=== PATIENT | female | born 1960 | race American Indian/Alaskan Native ===

== ENCOUNTER → 2016-05-23 | Outpatient (CLI) | payer BC | LOC: MW.CHFP 11:39 | PROVIDERS: ATTEND Emergency Medicine | DX: I10 Essential (primary) hypertension (principal); E78.00 Pure hypercholesterolemia, unspecified; E11.9 Type 2 diabetes mellitus without complications; Z79.4 Long term (current) use of insulin; D72.819 Decreased white blood cell count, unspecified | CPT/HCPCS: 36415; 80053; 80061; 82044; 83036; 85025 ==

== ENCOUNTER 2019-11-05 02:09 | Emergency (ER) | payer BC, OTHER ==
[2019-11-05] MEDS ORDERED: Sodium Chloride 0.9% 1,000 ML IV ONE (02:49)
[2019-11-05] MEDS ORDERED: Sodium Chloride 0.9% 2.5 ML Syringe FLUSH PRN (02:49)
[2019-11-05] MEDS ORDERED: Ketorolac 30 MG/ML SDV IVPUSH ONE (02:49)
[2019-11-05] MEDS ORDERED: Ondansetron 4 MG/2 ML SDV IVPUSH ONE (02:49)
[2019-11-05] MEDS ORDERED: Sodium Chloride 0.9% 10 ML Syringe FLUSH PRN (02:49)
--- NOTE | 2019-11-05 02:53 | EDM.PDOC ---
ED HPI GENERAL MEDICAL PROBLEM - General Chief Complaint: Fever Stated Complaint: FEVER, VOMITTING Time Seen by Provider: 11/05/19 02:42 Source of Information: Reports: Patient - History of Present Illness INITIAL COMMENTS - FREE TEXT/NARRATIVE: History of present illness: 59-year-old female presenting with right-sided low back pain for the last 2 weeks, has started to develop some left lower back pain and some right-sided abdominal pain in the last couple days. Also having increased urination and cloudy colored urine. Then this morning started having nausea and vomiting. Was able to drink some Sprite and keep it down just prior to arrival here. No fevers or chills. No dysuria. Review of systems: As per history of present illness and below otherwise all systems reviewed and negative. Past medical history: As per history of present illness and as reviewed below otherwise noncontributory. A. fib, fibromyalgia Surgical history: As per history of present illness and as reviewed below otherwise noncontributory. Cholecystectomy Social history: No reported history of drug or alcohol abuse. No tobacco Family history: As per history of present illness and as reviewed below otherwise noncontributory. Physical exam: GEN: no acute distress, well appearing HEENT: Atraumatic, normocephalic, mucous membranes moist, Neck: supple, nontender, trachea midline. Lungs: No respiratory distress. Heart: RRR Abdomen: Soft, mild diffuse tenderness, worst on the right side, nondistended. Back: Midline tenderness, mild bilateral flank tenderness Extremities: Atraumatic. Neurovascularly intact. Neuro: Awake, alert, oriented. Neuro Exam nonfocal. Skin: warm, dry, no lesions Diagnostics: Labs, UA, CT scan Therapeutics: Toradol, Zofran, IV fluids MDM: Impression: Plan: Definitive disposition and diagnosis as appropriate pending reevaluation and review of above. Right Lower Back Pain Score (Numeric/FACES): 7 - Related Data Allergies Allergy/AdvReac Type Severity Reaction Status Date / Time latex Allergy Hives Verified 11/05/19 03:54 Penicillins Allergy Hives Verified 11/05/19 03:21 promethazine Allergy Cannot Verified 11/05/19 02:45 Remember Home Meds: Home Meds Furosemide 1 tab PO DAILY 05/14/15 [History] Hydrocodone/Acetaminophen [Hydrocodon-Acetaminophn 10-325] 1 tab PO Q4H PRN 05/14/15 [History] Insulin Aspart [NovoLOG] 1 dose SUBCUT ASDIRECTED 05/14/15 [History] amLODIPine [Norvasc] 10 mg PO BEDTIME 05/14/15 [History] lisinopriL [Prinivil] 1 tab PO DAILY 05/14/15 [History] Apixaban [Eliquis] 0 mg PO DAILY 11/05/19 [History] Past Medical History HEENT History: Reports: Sinusitis Cardiovascular History: Reports: Heart Failure, Hypertension [employer]OL [employer] 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: Endocrine/Metabolic History: Reports: Diabetes, Type II - Past Surgical History Female Surgical History: Reports: Section, Hysterectomy Social & Family History - Family History Family Medical History: Noncontributory ED ROS GENERAL - Review of Systems Review Of Systems: See Below (See HPI) ED EXAM,LOWER BACK PAIN/INJURY - Physical Exam Exam: See Below (See HPI) Course - Vital Signs Last Recorded V/S: Last Vital Signs Temp 96.3 F L 11/05/19 02:42 Pulse 90 11/05/19 03:59 Resp 16 11/05/19 03:59 BP 134/82 11/05/19 03:59 Pulse Ox 98 11/05/19 03:59 - Orders/Labs/Meds Orders: Active Orders 24 hr Category Date Time Status Potassium Chloride Riders [KCL 40 MEQ in Water 100 ML] Med 11/05/19 03:15 Active 40 meq Premix Bag 1 bag IV ONETIME Sodium Chloride 0.9% [Saline Flush] Med 11/05/19 02:49 Active 10 ml FLUSH ASDIRECTED PRN Sodium Chloride 0.9% [Saline Flush] Med 11/05/19 02:49 Active 2.5 ml FLUSH ASDIRECTED PRN Saline Lock Insert [OM.PC] Stat Oth 11/05/19 02:49 Ordered Medication Orders Potassium Chloride 40 meq/ (Premix) 100 mls @ 25 mls/hr IV ONETIME ONE Stop: 11/05/19 07:14 Last Admin: 11/05/19 04:20 Dose: 25 mls/hr Documented by: PRO Sodium Chloride (Saline Flush) 10 ml FLUSH ASDIRECTED PRN PRN Reason: Keep Vein Open Sodium Chloride (Saline Flush) 2.5 ml FLUSH ASDIRECTED PRN PRN Reason: Keep Vein Open Labs: Laboratory Tests 11/05/19 11/05/19 11/05/19 Range/Units 02:30 02:30 02:30 WBC 3.04 L (4.0-11.0) K/uL RBC 4.20 L (4.30-5.90) M/uL Hgb 13.0 (12.0-16.0) g/dL Hct 38.8 (36.0-46.0) % MCV 92.4 (80.0-98.0) fL MCH 31.0 (27.0-32.0) pg MCHC 33.5 (31.0-37.0) g/dL RDW Std Deviation 52.3 (28.0-62.0) fl RDW Coeff of [place] 16 H (11.0-15.0) % Plt Count 73 L (150-400) K/uL MPV 10.40 (7.40-12.00) fL Neut % (Auto) 94.3 H (48.0-80.0) % Lymph % (Auto) 4.3 L (16.0-40.0) % [place] % (Auto) 0.7 (0.0-15.0) % Eos % (Auto) 0.7 (0.0-7.0) % Baso % (Auto) 0.0 (0.0-1.5) % Neut # (Auto) 2.9 (1.4-5.7) K/uL Lymph # (Auto) 0.1 L (0.6-2.4) K/uL [place] # (Auto) 0.0 (0.0-0.8) K/uL Eos # (Auto) 0.0 (0.0-0.7) K/uL Baso # (Auto) 0.0 (0.0-0.1) K/uL Nucleated RBC % 0.0 /100WBC Nucleated RBCs # 0 K/uL Sodium 134 L (136-145) mmol/L Potassium 2.7 L (3.5-5.1) mmol/L Chloride 95 L (98-107) mmol/L Carbon Dioxide 23.9 (21.0-32.0) mmol/L BUN 10 (7.0-18.0) mg/dL Creatinine 1.4 H (0.6-1.0) mg/dL Est Cr Clr Drug Dosing 44.18 mL/min Estimated GFR (MDRD) 38.6 ml/min Glucose 108 H (74-106) mg/dL Calcium 8.6 (8.5-10.1) mg/dL Total Bilirubin 2.1 H (0.2-1.0) mg/dL AST 168 H (15-37) IU/L ALT 40 (14-63) IU/L Alkaline Phosphatase 356 H (46-116) U/L Total Protein 7.3 (6.4-8.2) g/dL Albumin 3.7 (3.4-5.0) g/dL Globulin 3.6 (2.6-4.0) g/dL Albumin/Globulin Ratio 1.0 (0.9-1.6) Lipase 56 L (73-393) U/L Urine Color YELLOW Urine Appearance CLOUDY Urine pH 7.0 (5.0-8.0) Ur Specific [place] 1.015 (1.001-1.035) Urine Protein 100 H (NEGATIVE) mg/dL Urine Glucose (UA) NEGATIVE (NEGATIVE) mg/dL Urine Ketones NEGATIVE (NEGATIVE) mg/dL Urine Occult Blood LARGE H (NEGATIVE) Urine Nitrite POSITIVE H (NEGATIVE) Urine Bilirubin NEGATIVE (NEGATIVE) Urine Urobilinogen 2.0 H (<2.0) EU/dL Ur Leukocyte Esterase MODERATE H (NEGATIVE) Urine RBC 7-10 (0-2/HPF) Urine WBC TO NUMEROUS TO COUNT H (0-5/HPF) Ur Epithelial Cells FEW (NONE-FEW) Urine Bacteria 1+ H (NEGATIVE) Urine Mucus LIGHT (NONE-MOD) Urinalysis Comment Meds: Medications Generic Name Dose Route Start Last Admin Trade Name Freq PRN Reason Stop Dose Admin Potassium Chloride 40 meq/ 100 mls @ 25 mls/hr 11/05/19 03:15 11/05/19 04:20 Premix IV 11/05/19 07:14 25 mls/hr ONETIME ONE Administration Sodium Chloride 10 ml 11/05/19 02:49 Saline Flush FLUSH ASDIRECTED PRN Keep Vein Open Sodium Chloride 2.5 ml 11/05/19 02:49 Saline Flush FLUSH ASDIRECTED PRN Keep Vein Open Discontinued Medications Generic Name Dose Route Start Last Admin Trade Name Freq PRN Reason Stop Dose Admin Sodium Chloride 1,000 mls @ 999 mls/hr 11/05/19 02:49 11/05/19 03:08 Normal Saline IV 11/05/19 03:49 999 mls/hr .Bolus ONE Administration Ceftriaxone Sodium/Dextrose 1 50 mls @ 100 mls/hr 11/05/19 03:15 11/05/19 03:47 gm/ Premix IV 11/05/19 03:44 100 mls/hr ONETIME ONE Administration Ketorolac Tromethamine 30 mg 11/05/19 02:49 11/05/19 03:11 Toradol IVPUSH 11/05/19 02:50 30 mg ONETIME ONE Administration Morphine Sulfate 4 mg 11/05/19 04:19 11/05/19 04:22 Morphine IVPUSH 11/05/19 04:20 4 mg ONETIME ONE Administration Ondansetron HCl 4 mg 11/05/19 02:49 11/05/19 03:08 Zofran IVPUSH 11/05/19 02:50 4 mg ONETIME ONE Administration - Re-Assessments/Exams Free Text/Narrative Re-Assessment/Exam: 11/05/19 04:19 Patient reports that her pain is somewhat improved although still present. Additional pain medication will be ordered. 11/05/19 04:48 Assessed the patient. She is now feeling better. Pain is well controlled. I discussed all results with the patient including signs of UTI, hypokalemia, and abnormal findings on the CT scan of cirrhosis, splenomegaly and periaortic lymph node. An annotated copy of the CT scan results was also given to the patient. I discussed directly with the patient need to bring this up with her primary care physician and have them follow closely and determine if they need any additional work-up for the above likely chronic findings. She does report that she used to drink alcohol more heavily in the past but her generator rebuilder told her she could only drink 1 drink per day so she basically stopped drinking at that time. Departure - Departure Time of Disposition: 04:49 Disposition: Home, Self-Care 01 Clinical Impression: Hypokalemia, Splenomegaly UTI (urinary tract infection) Qualifiers: Urinary tract infection type: acute cystitis Hematuria presence: without hematuria Qualified Code(s): N30.00 - Acute cystitis without hematuria Cirrhosis Qualifiers: Hepatic cirrhosis type: unspecified hepatic cirrhosis Ascites presence: without ascites Qualified Code(s): K74.60 - Unspecified cirrhosis of liver - Discharge Information Instructions: Hypokalemia, Antibiotic Medicine, Adult, [id number], Enlarged Spleen, Cirrhosis, Urinary Tract Infection, Adult, [id number], Potassium Content of Foods, Pain Medicine Instructions, [id number] Referrals: Milagros Dean MD [Primary Care Provider] - 2 Days Forms: ED Department Discharge Additional Instructions: Please help with your primary care physician for further evaluation. Please take the antibiotics as prescribed. Please bring the CT scan results which were given to you with you to your primary care physician follow-up to discuss with them the cirrhosis and splenomegaly found on CT scan today, as well as the lymph node near the aorta. These need to be closely monitored and may need additional testing. The following information is given to patients seen in the emergency department who are being discharged to home. This information is to outline your options for follow-up care. We provide all patients seen in our emergency department with a follow-up referral. The need for follow-up, as well as the timing and circumstances, are variable depending upon the specifics of your emergency department visit. If you don't have a primary care physician on staff, we will provide you with a referral. We always advise you to contact your personal physician following an emergency department visit to inform them of the circumstance of the visit and for follow-up with them and/or the need for any referrals to a consulting specialist. The emergency department will also refer you to a specialist when appropriate. This referral assures that you have the opportunity for follow-up care with a specialist. All of these measure are taken in an effort to provide you with optimal care, which includes your follow-up. Under all circumstances we always encourage you to contact your private physician who remains a resource for coordinating your care. When calling for follow-up care, please make the office aware that this follow-up is from your recent emergency room visit. If for any reason you are refused follow-up, please contact the [facility] Emergency Department at and asked to speak to the emergency department charge nurse. [facility] [address] [place] [id number] [facility] [address] [place] [address] Sepsis Event Note (ED) - Evaluation Sepsis Screening Result: No Definite Risk - Focused Exam Vital Signs: Vital Signs Temp Pulse Resp BP Pulse Ox 11/05/19 03:59 90 16 134/82 98 11/05/19 02:42 96.3 F L 121 H 19 147/76 H 94 L - My Orders Last 24 Hours: My Active Orders 11/05/19 02:49 Sodium Chloride 0.9% [Saline Flush] 10 ml FLUSH ASDIRECTED PRN Sodium Chloride 0.9% [Saline Flush] 2.5 ml FLUSH ASDIRECTED PRN Saline Lock Insert [OM.PC] Stat 11/05/19 03:15 Potassium Chloride Riders [KCL 40 MEQ in Water 100 ML] 40 meq Premix Bag 1 bag IV ONETIME - Assessment/Plan Last 24 Hours: My Active Orders 11/05/19 02:49 Sodium Chloride 0.9% [Saline Flush] 10 ml FLUSH ASDIRECTED PRN Sodium Chloride 0.9% [Saline Flush] 2.5 ml FLUSH ASDIRECTED PRN Saline Lock Insert [OM.PC] Stat 11/05/19 03:15 Potassium Chloride Riders [KCL 40 MEQ in Water 100 ML] 40 meq Premix Bag 1 bag IV ONETIME
[2019-11-05 03:05] LABS: CARBON DIOXIDE,CO2 23.9 mmol/L (21.0-32.0); POTASSIUM,K 2.7 mmol/L (3.5-5.1)
[2019-11-05] MEDS ORDERED: Potassium Chloride Riders 40 MEQ in Premix Bag 1 BAG IV ONE (03:15)
[2019-11-05] MEDS ORDERED: cefTRIAXone 1 GM in Premix Bag 1 BAG IV ONE (03:15)
[2019-11-05] MEDS ORDERED: Morphine 4 MG/ML Syringe IVPUSH ONE (04:19)
--- NOTE | 2019-11-05 04:37 | CT ---
Clinical INDICATION: Right flank pain. TECHNIQUE: Axial noncontrast CT cuts were performed from above the diaphragm to the below the ischial tuberosities. FINDINGS: There are no renal, ureteral or bladder calculi. There are several pelvic phleboliths bilaterally. There is no hydronephrosis. The urinary bladder appears normal. There has been a hysterectomy. The liver contour is lobulated consistent with cirrhosis. There is severe splenomegaly with the spleen measuring 14.2 cm AP, 6.7 cm transversely and 18.5 cm cranial caudally. There has been a cholecystectomy. There is a small hiatal hernia. The pancreas and adrenal glands appear normal. There are mildly prominent left periaortic lymph nodes measuring up to 1.7 cm in maximum diameter. There is a small amount of free fluid in the pelvis. There is no iliac or inguinal lymphadenopathy. There are no nodules or masses at lung bases. There is atherosclerotic calcification of the coronary arteries IMPRESSION: 1. Negative for urinary tract calculi. 2. Cirrhotic liver morphology. 3. Severe splenomegaly. 4. Mildly prominent periaortic lymph nodes. 5. Small volume free fluid in the pelvis. 6. Status post cholecystectomy and hysterectomy. 7. Small hiatal hernia. 8. Coronary arterial calcification. Please note that all CT scans at this facility use dose modulation, iterative reconstruction, and/or weight-based dosing when appropriate to reduce radiation dose to as low as reasonably achievable. Dictated by Ricardo Joy MD @ Nov 05 2019 4:23AM Signed by Dr. Ricardo Joy @ Nov 05 2019 4:35AM
[2019-11-05 05:08] VITALS: BP 139/65; PULSE 105
== END 2019-11-05 05:05 | disposition home or self-care (01) ==
LOC: MW.ED 02:09
DX: N30.00 Acute cystitis without hematuria (principal); E87.6 Hypokalemia; K74.60 Unspecified cirrhosis of liver; R16.1 Splenomegaly, not elsewhere classified; I11.0 Hypertensive heart disease with heart failure; I50.9 Heart failure, unspecified; E11.9 Type 2 diabetes mellitus without complications; Z88.0 Allergy status to penicillin; Z91.040 Latex allergy status; Z88.8 Allergy status to other drugs, medicaments and biological substances; Z79.899 Other long term (current) drug therapy; Z79.01 Long term (current) use of anticoagulants
CPT/HCPCS: 36415; 74176; 80053; 81001; 83690; 85025; 96361; 96365; 96367; 96375; 99284; J0696; J1885; J2270; J2405; J3480; J7030

== ENCOUNTER 2019-11-05 12:40 | Inpatient (IN) | payer OTHER ==
[2019-11-05] MEDS ORDERED: Sodium Chloride 0.9% 10 ML Syringe FLUSH PRN (13:06)
[2019-11-05] MEDS ORDERED: Ondansetron 4 MG/2 ML SDV IVPUSH ONE (13:06)
[2019-11-05] MEDS ORDERED: Sodium Chloride 0.9% 1,000 ML IV ONE ×2 (13:06→14:37)
[2019-11-05] MEDS ORDERED: Sodium Chloride 0.9% 2.5 ML Syringe FLUSH PRN (13:06)
--- NOTE | 2019-11-05 13:07 | EDM.PDOC ---
ED HPI GENERAL MEDICAL PROBLEM - General Chief Complaint: Flank Pain Stated Complaint: FLANK PAIN, NAUSEA, VOMITTING Time Seen by Provider: 11/05/19 13:01 Source of Information: Reports: Patient History Limitations: Reports: No Limitations - History of Present Illness INITIAL COMMENTS - FREE TEXT/NARRATIVE: HISTORY AND PHYSICAL: History of present illness: Patient is a 59-year-old female who presents to the emergency room for the second time today with complaints of LUQ abdominal pain, bilateral flank pain, nausea and vomiting. Upon patient's first visit early this morning she was diagnosed with a urinary tract infection, hypokalemia, cirrhosis and have been given IV antibiotics (1gm Rocephin) and 40meQ IV potassium. Patient's initial ER visit was for low back pain, urinary symptoms x2 weeks. She states since being discharged she has had a T-max of 104, increased pain and unable to keep anything down by mouth. Patient denies any headache, change in vision, syncope or near syncope. Denies any chest pain, back pain, shortness of breath or cough. Denies any diarrhea, constipation or dysuria. Has not noted any blood in urine or stool. On patient's earlier ER visit her CT showed splenomegaly, lymph node near her aorta, and cirrhosis. Patient states in 2014 she was informed by a provider in [place] that she had liver disease, although has never had any complications or problem with this since. Approximately a year ago she did stop drinking alcohol as her equip tech told her she should due to the liver disease. She also has a history of type 2 diabetes, hypertension and heart failure. Review of systems: As per history of present illness and below otherwise all systems reviewed and negative. Past medical history: As per history of present illness and as reviewed below otherwise noncontributory. Surgical history: As per history of present illness and as reviewed below otherwise noncontributory. Social history: See social history for further information Family history: As per history of present illness and as reviewed below otherwise noncontributory. Physical exam: General: Well developed and well nourished. Alert and orientated x 3. Nontoxic in appearance and in no acute distress. Vital signs are stable and have been reviewed by me. Nursing notes were reviewed. HEENT: Atraumatic, normocephalic, pupils equal and reactive bilaterally, negative for conjunctival pallor or scleral icterus, mucous membranes moist, TMs normal bilaterally, throat clear, neck supple, nontender, trachea midline. No drooling or trismus noted. No meningeal signs. No hot potato voice noted. Lungs: Clear to auscultation, breath sounds equal bilaterally, chest nontender. Normal work of breathing, no accessory muscles used. Heart: S1S2, regular rate and rhythm without overt murmur Abdomen: Soft, nondistended, LUQ tenderness. Negative for masses or hepatosplenomegaly. Bilateral costovertebral tenderness. Skin: Intact, warm, dry. No lesions or rashes noted. Hematologic: No petechiae or purpra. Mucosa appropriate color and normal nail bed color and refill. Extremities: Atraumatic, moves all extremities per self without difficulty or deficits, negative for cords or calf pain. Neurovascular unremarkable. Neuro: Awake, alert, oriented. Cranial nerves II through XII unremarkable. Cerebellum unremarkable. Motor and sensory unremarkable throughout. Exam nonfocal. Psychiatric: Mood and affect are appropriate. Normal thought process. Answering questions appropriately. Notes: Patient's earlier ER visit: Lipase 56 (L), Potassium 2.7 (L). CT negative for urinary tract calculi. No hydronephrosis. Cirrhotic liver morphology. Severe splenomegaly with the spleen measuring 14.2 cm x 6.7 cm x 18.5. Cholecystectomy and hysterectomy. Mildly prominent periaortic lymph nodes. Small volume free fluid in the pelvis. Patient has positive nitrates with too many to count WBCs. Patient's lactate is elevated. Fluids are running and blood cultures have been drawn. Potassium is now 3.0, up from earlier draw. I did talk with , hospitalist on-call, who is aware of this patient's second visit. As the patient had previously had both potassium and Rocephin I will hold any additional antibiotic or potassium orders, Avinash states he will order these later in the evening. Patient is aware of admission and agreeable stating "I cannot go home like this". Diagnostics: CBC, CMP, lactate, blood culture x2, COVID Therapeutics: IV fluids Impression: UTI Splenomegaly Plan: Inpatient admission to Med/Surg Definitive disposition and diagnosis as appropriate pending reevaluation and review of above. Left Abdomen Pain Score (Numeric/FACES): 8 - Related Data Allergies Allergy/AdvReac Type Severity Reaction Status Date / Time latex Allergy Hives Verified 11/05/19 13:06 Penicillins Allergy Hives Verified 11/05/19 13:06 promethazine Allergy Cannot Verified 11/05/19 13:06 Remember Home Meds: Home Meds Furosemide 1 tab PO DAILY 05/14/15 [History] Hydrocodone/Acetaminophen [Hydrocodon-Acetaminophn 10-325] 1 tab PO Q4H PRN 05/14/15 [History] Insulin Aspart [NovoLOG] 1 dose SUBCUT ASDIRECTED 05/14/15 [History] amLODIPine [Norvasc] 10 mg PO BEDTIME 05/14/15 [History] lisinopriL [Prinivil] 1 tab PO DAILY 05/14/15 [History] Apixaban [Eliquis] 0 mg PO DAILY 11/05/19 [History] Potassium Chloride 20 meq PO DAILY #20 tablet.er 11/05/19 [Rx] cephALEXin [Keflex] 1,000 mg PO BID #40 cap 11/05/19 [Rx] Past Medical History HEENT History: Reports: Sinusitis Cardiovascular History: Reports: Heart Failure, 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 ED EXAM, RENAL/ - Physical Exam Exam: See Below (See dictation) Course - Vital Signs Last Recorded V/S: Last Vital Signs Temp 96.3 F L 11/05/19 13:02 Pulse 117 H 11/05/19 13:02 Resp 18 11/05/19 13:02 BP 106/76 11/05/19 13:02 Pulse Ox 92 L 11/05/19 13:02 - Orders/Labs/Meds Orders: Active Orders 24 hr Category Date Time Status CULTURE BLOOD [BC] Stat Lab 11/05/19 13:15 Received CULTURE BLOOD [BC] Stat Lab 11/05/19 13:25 Received Sodium Chloride 0.9% [Saline Flush] Med 11/05/19 13:06 Active 10 ml FLUSH ASDIRECTED PRN Sodium Chloride 0.9% [Saline Flush] Med 11/05/19 13:06 Active 2.5 ml FLUSH ASDIRECTED PRN Blood Culture x2 Reflex Set [OM.PC] Stat Ot 11/05/19 13:05 Ordered Saline Lock Insert [OM.PC] Stat Ot 11/05/19 13:06 Ordered Medication Orders Sodium Chloride (Normal Saline) 1,000 mls @ 999 mls/hr IV .Bolus ONE Stop: 11/05/19 15:37 Sodium Chloride (Normal Saline) 1,000 mls @ 125 mls/hr IV ASDIRECTED JANIE Ceftriaxone Sodium/Dextrose 1 (gm/ Premix) 50 mls @ 100 mls/hr IV Q24H JANIE Sodium Chloride (Saline Flush) 10 ml FLUSH ASDIRECTED PRN PRN Reason: Keep Vein Open Sodium Chloride (Saline Flush) 2.5 ml FLUSH ASDIRECTED PRN PRN Reason: Keep Vein Open Labs: Laboratory Tests 11/05/19 11/05/19 11/05/19 Range/Units 13:15 13:15 13:15 WBC 6.86 (4.0-11.0) K/uL RBC 4.00 L (4.30-5.90) M/uL Hgb 12.5 (12.0-16.0) g/dL Hct 36.9 (36.0-46.0) % MCV 92.3 (80.0-98.0) fL MCH 31.3 (27.0-32.0) pg MCHC 33.9 (31.0-37.0) g/dL RDW Std Deviation 52.4 (28.0-62.0) fl RDW Coeff of Saranya 16 H (11.0-15.0) % Plt Count 50 L (150-400) K/uL MPV 10.00 (7.40-12.00) fL Neut % (Auto) 94.0 H (48.0-80.0) % Lymph % (Auto) 2.9 L (16.0-40.0) % [place] % (Auto) 3.1 (0.0-15.0) % Eos % (Auto) 0.0 (0.0-7.0) % Baso % (Auto) 0.0 (0.0-1.5) % Neut # (Auto) 6.5 H (1.4-5.7) K/uL Lymph # (Auto) 0.2 L (0.6-2.4) K/uL [place] # (Auto) 0.2 (0.0-0.8) K/uL Eos # (Auto) 0.0 (0.0-0.7) K/uL Baso # (Auto) 0.0 (0.0-0.1) K/uL Nucleated RBC % 0.0 /100WBC Nucleated RBCs # 0 K/uL Lactate 3.7 H* (0.20-2.00) mmol/L Sodium 136 (136-145) mmol/L Potassium 3.0 L (3.5-5.1) mmol/L Chloride 97 L (98-107) mmol/L Carbon Dioxide 25.6 (21.0-32.0) mmol/L BUN 12 (7.0-18.0) mg/dL Creatinine 1.4 H (0.6-1.0) mg/dL Est Cr Clr Drug Dosing 44.18 mL/min Estimated GFR (MDRD) 38.6 ml/min Glucose 149 H (74-106) mg/dL Calcium 9.1 (8.5-10.1) mg/dL Total Bilirubin 2.1 H (0.2-1.0) mg/dL AST 86 H (15-37) IU/L ALT 39 (14-63) IU/L Alkaline Phosphatase 267 H (46-116) U/L Total Protein 6.9 (6.4-8.2) g/dL Albumin 3.3 L (3.4-5.0) g/dL Globulin 3.6 (2.6-4.0) g/dL Albumin/Globulin Ratio 0.9 (0.9-1.6) Meds: Medications Generic Name Dose Route Start Last Admin Trade Name Freq PRN Reason Stop Dose Admin Sodium Chloride 1,000 mls @ 999 mls/hr 11/05/19 14:37 Normal Saline IV 11/05/19 15:37 .Bolus ONE Sodium Chloride 1,000 mls @ 125 mls/hr 11/05/19 14:45 Normal Saline IV ASDIRECTED JANIE Ceftriaxone Sodium/Dextrose 1 50 mls @ 100 mls/hr 11/05/19 14:52 gm/ Premix IV Q24H JANIE Sodium Chloride 10 ml 11/05/19 13:06 Saline Flush FLUSH ASDIRECTED PRN Keep Vein Open Sodium Chloride 2.5 ml 11/05/19 13:06 Saline Flush FLUSH ASDIRECTED PRN Keep Vein Open Discontinued Medications Generic Name Dose Route Start Last Admin Trade Name Freq PRN Reason Stop Dose Admin Sodium Chloride 1,000 mls @ 999 mls/hr 11/05/19 13:06 11/05/19 13:25 Normal Saline IV 11/05/19 14:06 999 mls/hr STAT ONE Administration Ceftriaxone Sodium 1 gm/ 50 mls @ 100 mls/hr 11/05/19 14:45 Sodium Chloride IV Q24H JANIE Ceftriaxone Sodium/Dextrose 2 50 mls @ 100 mls/hr 11/05/19 15:00 gm/ Premix IV 11/05/19 15:29 ONETIME ONE Ceftriaxone Sodium/Dextrose 1 50 mls @ 100 mls/hr 11/06/19 14:45 gm/ Premix IV Q24H JANIE Ceftriaxone Sodium/Dextrose Confirm 11/05/19 14:57 Rocephin In Dextrose,Iso-Osm 2 Gm/50 Ml Administered 11/05/19 14:58 Dose 50 mls @ as directed .ROUTE .STK-MED ONE Ondansetron HCl 4 mg 11/05/19 13:06 11/05/19 13:22 Zofran IVPUSH 11/05/19 13:07 4 mg ONETIME ONE Administration Potassium Chloride 40 meq 11/05/19 14:34 11/05/19 15:00 Klor-Con M20 PO 11/05/19 14:35 40 meq ONETIME ONE Administration Departure - Departure Time of Disposition: 13:56 Disposition: Admitted As Inpatient 67 Clinical Impression: UTI, Urinary tract infectious disease, Splenomegaly - Discharge Information Sepsis Event Note (ED) - Evaluation Sepsis Screening Result: No Definite Risk - Focused Exam Vital Signs: Vital Signs Temp Pulse Resp BP Pulse Ox 11/05/19 13:02 96.3 F L 117 H 18 106/76 92 L - My Orders Last 24 Hours: My Active Orders 11/05/19 13:05 Blood Culture x2 Reflex Set [OM.PC] Stat 11/05/19 13:06 Sodium Chloride 0.9% [Saline Flush] 10 ml FLUSH ASDIRECTED PRN Sodium Chloride 0.9% [Saline Flush] 2.5 ml FLUSH ASDIRECTED PRN Saline Lock Insert [OM.PC] Stat 11/05/19 13:15 CULTURE BLOOD [BC] Stat 11/05/19 13:25 CULTURE BLOOD [BC] Stat - Assessment/Plan Last 24 Hours: My Active Orders 11/05/19 13:05 Blood Culture x2 Reflex Set [OM.PC] Stat 11/05/19 13:06 Sodium Chloride 0.9% [Saline Flush] 10 ml FLUSH ASDIRECTED PRN Sodium Chloride 0.9% [Saline Flush] 2.5 ml FLUSH ASDIRECTED PRN Saline Lock Insert [OM.PC] Stat 11/05/19 13:15 CULTURE BLOOD [BC] Stat 11/05/19 13:25 CULTURE BLOOD [BC] Stat
[2019-11-05 13:47] LABS: CARBON DIOXIDE,CO2 25.6 mmol/L (21.0-32.0)
[2019-11-05] MEDS ORDERED: Potassium Chloride 20 MEQ Tab.ER PO ONE (14:34)
[2019-11-05] MEDS ORDERED: Sodium Chloride 0.9% 1,000 ML IV SCH (14:45)
[2019-11-05] MEDS ORDERED: cefTRIAXone 1 GM in Sodium Chloride 0.9% 50 ML IV SCH (14:45)
[2019-11-05] MEDS ORDERED: cefTRIAXone 2 GM in Premix Bag 1 BAG IV ONE (15:00)
[2019-11-05] MEDS ORDERED: Morphine 4 MG/ML Syringe IVPUSH ONE (15:09)
[2019-11-05] MEDS: cefTRIAXone 1 GM in Premix Bag 1 BAG IV SCH (15:09)
--- NOTE | 2019-11-05 15:24 | PCM.HP.2 ---
H&P History of Present Illness - General Date of Service: 11/05/19 Admit Problem/Dx: Admission Diagnosis/Problem Admission Diagnosis/Problem UTI, Urinary tract infectious disease - History of Present Illness Initial Comments - Free Text/Narative: 59 year old female admitted for urosepsis and LIVE. Patient states that she was seen in the ED this morning around 2am for flank pain, back pain, LUQ pain, cloudy urine fever and nausea. Patient states that she has been having cloudy urine and back pain for 2 weeks. She was treated in the ED with IV Rocephin, given a prescription for antibiotics and discharged. Patient re visited the ED later this afternoon for increasing pain and a temperature of 104F. On admission to the medical floor, patient was given 1g Rocephin, 1LNS Bolus, pain medication, 125ml/hr NS. Patient has a PMH for HTN, A-Fib treated with Eliquis, Diabetes, Liver Cirrhosis. Left Abdomen Pain Score (Numeric/FACES): 8 - Related Data Allergies/Adverse Reactions: Allergies Allergy/AdvReac Type Severity Reaction Status Date / Time codeine Allergy Other Verified 11/05/19 15:49 latex Allergy Hives Verified 11/05/19 15:48 Penicillins Allergy Hives Verified 11/05/19 15:48 promethazine Allergy Cannot Verified 11/05/19 15:48 Remember Home Medications: Home Meds Furosemide 1 tab PO DAILY 05/14/15 [History] Hydrocodone/Acetaminophen [Hydrocodon-Acetaminophn 10-325] 1 tab PO Q4H PRN 05/14/15 [History] Insulin Aspart [NovoLOG] 1 dose SUBCUT TIDAC 05/14/15 [History] amLODIPine [Norvasc] 10 mg PO BEDTIME 05/14/15 [History] lisinopriL [Prinivil] 1 tab PO DAILY 05/14/15 [History] Apixaban [Eliquis] 5 mg PO BID 11/05/19 [History] Diltiazem [Dilacor XR] 1 cap PO BEDTIME 11/05/19 [History] Potassium Chloride 20 meq PO DAILY #20 tablet.er 11/05/19 [Rx] Past Medical History HEENT History: Reports: Sinusitis Cardiovascular History: Reports: 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 Failure, 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 Denies: Chills Pulmonary: Denies: Shortness of Breath, Wheezing, Pleuritic Chest Pain, Cough Cardiovascular: Reports: Dyspnea on Exertion. Denies: Chest Pain, Palpitations Gastrointestinal: Reports: Abdominal Pain, Decreased Appetite, Nausea, Vomiting. Denies: Diarrhea Genitourinary: Reports: Flank Pain. Denies: Urgency, Hematuria, Retention Musculoskeletal: Reports: Back Pain Psychiatric: Denies: Confusion Neurological: Denies: Dizziness, Headache Exam - Exam Exam: See Below - Vital Signs Vital Signs: Last Vital Signs Temp 98.3 F 11/05/19 15:15 Pulse 101 H 11/05/19 15:15 Resp 20 11/05/19 15:15 BP 147/68 H 11/05/19 15:15 Pulse Ox 93 L 11/05/19 15:15 Weight: 215 lb - Exam General: Alert, Oriented HEENT: Hearing Intact, Mucosa Moist & [place] Lungs: Clear to Auscultation, Normal Respiratory Effort. No: Wheezing Cardiovascular: Regular Rate, Regular Rhythm GI/Abdominal Exam: Soft, No Distention, Tender (throughout abdomen) Back Exam: CVA Tenderness (L), CVA Tenderness (R) - Patient Data Lab Results Last 24 hrs: Laboratory Results - last 24 hr 11/05/19 11/05/19 11/05/19 Range/Units 13:15 13:15 13:15 WBC 6.86 (4.0-11.0) K/uL RBC 4.00 L (4.30-5.90) M/uL Hgb 12.5 (12.0-16.0) g/dL Hct 36.9 (36.0-46.0) % MCV 92.3 (80.0-98.0) fL MCH 31.3 (27.0-32.0) pg MCHC 33.9 (31.0-37.0) g/dL RDW Std Deviation 52.4 (28.0-62.0) fl RDW Coeff of Saranya 16 H (11.0-15.0) % Plt Count 50 L (150-400) K/uL MPV 10.00 (7.40-12.00) fL Neut % (Auto) 94.0 H (48.0-80.0) % Lymph % (Auto) 2.9 L (16.0-40.0) % [place] % (Auto) 3.1 (0.0-15.0) % Eos % (Auto) 0.0 (0.0-7.0) % Baso % (Auto) 0.0 (0.0-1.5) % Neut # (Auto) 6.5 H (1.4-5.7) K/uL Lymph # (Auto) 0.2 L (0.6-2.4) K/uL [place] # (Auto) 0.2 (0.0-0.8) K/uL Eos # (Auto) 0.0 (0.0-0.7) K/uL Baso # (Auto) 0.0 (0.0-0.1) K/uL Nucleated RBC % 0.0 /100WBC Nucleated RBCs # 0 K/uL Lactate 3.7 H* (0.20-2.00) mmol/L Sodium 136 (136-145) mmol/L Potassium 3.0 L (3.5-5.1) mmol/L Chloride 97 L (98-107) mmol/L Carbon Dioxide 25.6 (21.0-32.0) mmol/L BUN 12 (7.0-18.0) mg/dL Creatinine 1.4 H (0.6-1.0) mg/dL Est Cr Clr Drug Dosing 44.18 mL/min Estimated GFR (MDRD) 38.6 ml/min Glucose 149 H (74-106) mg/dL Calcium 9.1 (8.5-10.1) mg/dL Total Bilirubin 2.1 H (0.2-1.0) mg/dL AST 86 H (15-37) IU/L ALT 39 (14-63) IU/L Alkaline Phosphatase 267 H (46-116) U/L Total Protein 6.9 (6.4-8.2) g/dL Albumin 3.3 L (3.4-5.0) g/dL Globulin 3.6 (2.6-4.0) g/dL Albumin/Globulin Ratio 0.9 (0.9-1.6) SARS-CoV-2 RNA (ROGELIO) (NEGATIVE) 11/05/19 Range/Units 13:59 WBC (4.0-11.0) K/uL RBC (4.30-5.90) M/uL Hgb (12.0-16.0) g/dL Hct (36.0-46.0) % MCV (80.0-98.0) fL MCH (27.0-32.0) pg MCHC (31.0-37.0) g/dL RDW Std Deviation (28.0-62.0) fl RDW Coeff of Saranya (11.0-15.0) % Plt Count (150-400) K/uL MPV (7.40-12.00) fL Neut % (Auto) (48.0-80.0) % Lymph % (Auto) (16.0-40.0) % [place] % (Auto) (0.0-15.0) % Eos % (Auto) (0.0-7.0) % Baso % (Auto) (0.0-1.5) % Neut # (Auto) (1.4-5.7) K/uL Lymph # (Auto) (0.6-2.4) K/uL [place] # (Auto) (0.0-0.8) K/uL Eos # (Auto) (0.0-0.7) K/uL Baso # (Auto) (0.0-0.1) K/uL Nucleated RBC % /100WBC Nucleated RBCs # K/uL Lactate (0.20-2.00) mmol/L Sodium (136-145) mmol/L Potassium (3.5-5.1) mmol/L Chloride (98-107) mmol/L Carbon Dioxide (21.0-32.0) mmol/L BUN (7.0-18.0) mg/dL Creatinine (0.6-1.0) mg/dL Est Cr Clr Drug Dosing mL/min Estimated GFR (MDRD) ml/min Glucose (74-106) mg/dL Calcium (8.5-10.1) mg/dL Total Bilirubin (0.2-1.0) mg/dL AST (15-37) IU/L ALT (14-63) IU/L Alkaline Phosphatase (46-116) U/L Total Protein (6.4-8.2) g/dL Albumin (3.4-5.0) g/dL Globulin (2.6-4.0) g/dL Albumin/Globulin Ratio (0.9-1.6) SARS-CoV-2 RNA (ROGELIO) NEGATIVE (NEGATIVE) Result Diagrams: 11/05/19 13:15 11/05/19 13:15 Sepsis Event Note - Evaluation Sepsis Screening Result: No Definite Risk - Focused Exam Vital Signs: Vital Signs Temp Pulse Resp BP Pulse Ox 11/05/19 15:15 98.3 F 101 H 20 147/68 H 93 L 11/05/19 13:02 96.3 F L 117 H 18 106/76 92 L Problem List Initiated/Reviewed/Updated: Yes Orders Last 24hrs: Active Orders 24 hr Category Date Time Status Admission Status [Patient Status] [ADT] Stat ADT 11/05/19 13:42 Active BASIC METABOLIC PANEL,BMP [CHEM] AM Lab 11/06/19 05:11 Ordered CBC WITH AUTO DIFF [HEME] AM Lab 11/06/19 05:11 Ordered CULTURE BLOOD [BC] Stat Lab 11/05/19 13:15 Received CULTURE BLOOD [BC] Stat Lab 11/05/19 13:25 Received CULTURE URINE [RM] Routine Lab 11/05/19 02:30 Received Sodium Chloride 0.9% [Normal Saline] 1,000 ml Med 11/05/19 14:37 Active IV .Bolus Sodium Chloride 0.9% [Normal Saline] 1,000 ml Med 11/05/19 14:45 Active IV ASDIRECTED Sodium Chloride 0.9% [Saline Flush] Med 11/05/19 13:06 Active 10 ml FLUSH ASDIRECTED PRN Sodium Chloride 0.9% [Saline Flush] Med 11/05/19 13:06 Active 2.5 ml FLUSH ASDIRECTED PRN cefTRIAXone [Rocephin in Dextrose,Iso-Osm 1 GM/50 ML] 1 Med 11/05/19 14:52 Active gm Premix Bag 1 bag IV Q24H Blood Culture x2 Reflex Set [OM.PC] Stat Oth 11/05/19 13:05 Ordered Saline Lock Insert [OM.PC] Stat Oth 11/05/19 13:06 Ordered Medication Orders Sodium Chloride (Normal Saline) 1,000 mls @ 999 mls/hr IV .Bolus ONE Stop: 11/05/19 15:37 Last Admin: 11/05/19 15:08 Dose: 999 mls/hr Documented by: [email or web address] Sodium Chloride (Normal Saline) 1,000 mls @ 125 mls/hr IV ASDIRECTED JANIE Stop: 11/05/19 22:44 Ceftriaxone Sodium/Dextrose 1 (gm/ Premix) 50 mls @ 100 mls/hr IV Q24H JANIE Last Admin: 11/05/19 15:09 Dose: 100 mls/hr Documented by: KAYDENAM Sodium Chloride (Saline Flush) 10 ml FLUSH ASDIRECTED PRN PRN Reason: Keep Vein Open Sodium Chloride (Saline Flush) 2.5 ml FLUSH ASDIRECTED PRN PRN Reason: Keep Vein Open Assessment/Plan Comment:: Assessment/Plan: Urosepsis- 1g Rocephin Q24, 1L NS BOLUS, 125 ml/hr NS, UC, Repeat Lactate, Zofran 4MG Q4HR PRN, Morphine 4MG Q3HR PRN A-Fib- Eliquis, Diltiazem Hypokalemia- 40meq K+ PO. Recheck AM BMP LIVE- 125ml/hr NS. Monitor AM BMP.
[2019-11-05] MEDS ORDERED: Ondansetron 4 MG/2 ML SDV IVPUSH PRN (16:42)
[2019-11-05] MEDS ORDERED: Morphine 4 MG/ML Syringe IVPUSH PRN (18:22)
[2019-11-05] MEDS: Insulin Aspart 100 Units/ML 3 ML Pen SUBCUT SCH (18:47)
[2019-11-05] MEDS: amLODIPine 5 MG Tab PO SCH (20:51)
[2019-11-05] MEDS: Diltiazem 180 MG Cap.CD PO SCH (20:52)
[2019-11-05] MEDS: Acetaminophen/HYDROcodone 325-10 MG Tab PO PRN (20:52)
[2019-11-05] MEDS: Morphine 2 MG/ML SYRINGE IVPUSH PRN (23:22)
[2019-11-06] MEDS: Acetaminophen/HYDROcodone 325-10 MG Tab PO PRN ×5 (02:10→22:14)
[2019-11-06] MEDS: Morphine 2 MG/ML SYRINGE IVPUSH PRN ×4 (05:13→17:43)
[2019-11-06 05:49] LABS: CARBON DIOXIDE,CO2 24.8 mmol/L (21.0-32.0); POTASSIUM,K 3.3 mmol/L (3.5-5.1)
[2019-11-06] MEDS: Insulin Aspart 100 Units/ML 3 ML Pen SUBCUT SCH ×3 (06:30→17:44)
[2019-11-06] MEDS: Potassium Chloride 20 MEQ Tab.ER PO SCH (08:08)
[2019-11-06] MEDS: Furosemide 40 MG Tab PO SCH (08:09)
[2019-11-06] MEDS ORDERED: Potassium Chloride 20 MEQ Tab.ER PO ONE (08:18)
[2019-11-06] MEDS ORDERED: Apixaban 2.5 MG Tab PO SCH (09:00)
--- NOTE | 2019-11-06 11:36 | PCM.PN ---
- General Info Date of Service: 11/06/19 Subjective Update: Patient states that she still has left sided flank pain. Denies nausea, vomiting, fever, chills. - Review of Systems General: Denies: Fever, Chills HEENT: Denies: Headaches Pulmonary: Denies: Shortness of Breath, Pleuritic Chest Pain, Cough Cardiovascular: Denies: Chest Pain, Dyspnea on Exertion Gastrointestinal: Denies: Abdominal Pain, Diarrhea, Nausea, Vomiting Genitourinary: Reports: Flank Pain (left ). Denies: Dysuria, Frequency, Burning Musculoskeletal: Reports: Back Pain Neurological: Denies: Confusion, Dizziness, Headache - Patient Data Vitals - Most Recent: Last Vital Signs Temp 97.5 F 11/06/19 08:00 Pulse 80 11/06/19 08:00 Resp 20 11/06/19 08:00 BP 142/70 H 11/06/19 08:00 Pulse Ox 95 11/06/19 08:00 Weight - Most Recent: 215 lb I&O - Last 24 Hours: Intake & Output 11/05/19 11/06/19 11/06/19 22:59 06:59 14:59 Intake Total 860 Output Total 560 Balance 300 Lab Results Last 24 Hours: Laboratory Results - last 24 hr 11/05/19 11/05/19 11/05/19 Range/Units 13:15 13:15 13:15 WBC 6.86 (4.0-11.0) K/uL RBC 4.00 L (4.30-5.90) M/uL Hgb 12.5 (12.0-16.0) g/dL Hct 36.9 (36.0-46.0) % MCV 92.3 (80.0-98.0) fL MCH 31.3 (27.0-32.0) pg MCHC 33.9 (31.0-37.0) g/dL RDW Std Deviation 52.4 (28.0-62.0) fl RDW Coeff of Saranya 16 H (11.0-15.0) % Plt Count 50 L (150-400) K/uL MPV 10.00 (7.40-12.00) fL Neut % (Auto) 94.0 H (48.0-80.0) % Lymph % (Auto) 2.9 L (16.0-40.0) % [place] % (Auto) 3.1 (0.0-15.0) % Eos % (Auto) 0.0 (0.0-7.0) % Baso % (Auto) 0.0 (0.0-1.5) % Neut # (Auto) 6.5 H (1.4-5.7) K/uL Lymph # (Auto) 0.2 L (0.6-2.4) K/uL [place] # (Auto) 0.2 (0.0-0.8) K/uL Eos # (Auto) 0.0 (0.0-0.7) K/uL Baso # (Auto) 0.0 (0.0-0.1) K/uL Nucleated RBC % 0.0 /100WBC Nucleated RBCs # 0 K/uL Lactate 3.7 H* (0.20-2.00) mmol/L Sodium 136 (136-145) mmol/L Potassium 3.0 L (3.5-5.1) mmol/L Chloride 97 L (98-107) mmol/L Carbon Dioxide 25.6 (21.0-32.0) mmol/L BUN 12 (7.0-18.0) mg/dL Creatinine 1.4 H (0.6-1.0) mg/dL Est Cr Clr Drug Dosing 44.18 mL/min Estimated GFR (MDRD) 38.6 ml/min Glucose 149 H (74-106) mg/dL POC Glucose (60-110) mg/dL Calcium 9.1 (8.5-10.1) mg/dL Total Bilirubin 2.1 H (0.2-1.0) mg/dL AST 86 H (15-37) IU/L ALT 39 (14-63) IU/L Alkaline Phosphatase 267 H (46-116) U/L Total Protein 6.9 (6.4-8.2) g/dL Albumin 3.3 L (3.4-5.0) g/dL Globulin 3.6 (2.6-4.0) g/dL Albumin/Globulin Ratio 0.9 (0.9-1.6) SARS-CoV-2 RNA (ROGELIO) (NEGATIVE) 11/05/19 11/05/19 11/05/19 Range/Units 13:59 16:19 16:34 WBC (4.0-11.0) K/uL RBC (4.30-5.90) M/uL Hgb (12.0-16.0) g/dL Hct (36.0-46.0) % MCV (80.0-98.0) fL MCH (27.0-32.0) pg MCHC (31.0-37.0) g/dL RDW Std Deviation (28.0-62.0) fl RDW Coeff of Saranya (11.0-15.0) % Plt Count (150-400) K/uL MPV (7.40-12.00) fL Neut % (Auto) (48.0-80.0) % Lymph % (Auto) (16.0-40.0) % [place] % (Auto) (0.0-15.0) % Eos % (Auto) (0.0-7.0) % Baso % (Auto) (0.0-1.5) % Neut # (Auto) (1.4-5.7) K/uL Lymph # (Auto) (0.6-2.4) K/uL [place] # (Auto) (0.0-0.8) K/uL Eos # (Auto) (0.0-0.7) K/uL Baso # (Auto) (0.0-0.1) K/uL Nucleated RBC % /100WBC Nucleated RBCs # K/uL Lactate 2.3 H* (0.20-2.00) mmol/L Sodium (136-145) mmol/L Potassium (3.5-5.1) mmol/L Chloride (98-107) mmol/L Carbon Dioxide (21.0-32.0) mmol/L BUN (7.0-18.0) mg/dL Creatinine (0.6-1.0) mg/dL Est Cr Clr Drug Dosing mL/min Estimated GFR (MDRD) ml/min Glucose (74-106) mg/dL POC Glucose 137 H (60-110) mg/dL Calcium (8.5-10.1) mg/dL Total Bilirubin (0.2-1.0) mg/dL AST (15-37) IU/L ALT (14-63) IU/L Alkaline Phosphatase (46-116) U/L Total Protein (6.4-8.2) g/dL Albumin (3.4-5.0) g/dL Globulin (2.6-4.0) g/dL Albumin/Globulin Ratio (0.9-1.6) SARS-CoV-2 RNA (ROGELIO) NEGATIVE (NEGATIVE) 11/05/19 11/06/19 11/06/19 Range/Units 19:59 05:05 05:05 WBC 6.10 (4.0-11.0) K/uL RBC 3.28 L (4.30-5.90) M/uL Hgb 10.2 L (12.0-16.0) g/dL Hct 30.7 L (36.0-46.0) % MCV 93.6 (80.0-98.0) fL MCH 31.1 (27.0-32.0) pg MCHC 33.2 (31.0-37.0) g/dL RDW Std Deviation 54.8 (28.0-62.0) fl RDW Coeff of Saranya 16 H (11.0-15.0) % Plt Count 43 L (150-400) K/uL MPV 10.50 (7.40-12.00) fL Neut % (Auto) 71.8 (48.0-80.0) % Lymph % (Auto) 14.3 L (16.0-40.0) % [place] % (Auto) 12.6 (0.0-15.0) % Eos % (Auto) 1.1 (0.0-7.0) % Baso % (Auto) 0.2 (0.0-1.5) % Neut # (Auto) 4.4 (1.4-5.7) K/uL Lymph # (Auto) 0.9 (0.6-2.4) K/uL [place] # (Auto) 0.8 (0.0-0.8) K/uL Eos # (Auto) 0.1 (0.0-0.7) K/uL Baso # (Auto) 0.0 (0.0-0.1) K/uL Nucleated RBC % 0.0 /100WBC Nucleated RBCs # 0 K/uL Lactate 1.9 (0.20-2.00) mmol/L Sodium 135 L (136-145) mmol/L Potassium 3.3 L (3.5-5.1) mmol/L Chloride 100 (98-107) mmol/L Carbon Dioxide 24.8 (21.0-32.0) mmol/L BUN 16 (7.0-18.0) mg/dL Creatinine 1.3 H (0.6-1.0) mg/dL Est Cr Clr Drug Dosing 47.58 mL/min Estimated GFR (MDRD) 42.1 ml/min Glucose 83 (74-106) mg/dL POC Glucose (60-110) mg/dL Calcium 7.9 L (8.5-10.1) mg/dL Total Bilirubin (0.2-1.0) mg/dL AST (15-37) IU/L ALT (14-63) IU/L Alkaline Phosphatase (46-116) U/L Total Protein (6.4-8.2) g/dL Albumin (3.4-5.0) g/dL Globulin (2.6-4.0) g/dL Albumin/Globulin Ratio (0.9-1.6) SARS-CoV-2 RNA (ROGELIO) (NEGATIVE) 11/06/19 Range/Units 05:50 WBC (4.0-11.0) K/uL RBC (4.30-5.90) M/uL Hgb (12.0-16.0) g/dL Hct (36.0-46.0) % MCV (80.0-98.0) fL MCH (27.0-32.0) pg MCHC (31.0-37.0) g/dL RDW Std Deviation (28.0-62.0) fl RDW Coeff of Saranya (11.0-15.0) % Plt Count (150-400) K/uL MPV (7.40-12.00) fL Neut % (Auto) (48.0-80.0) % Lymph % (Auto) (16.0-40.0) % [place] % (Auto) (0.0-15.0) % Eos % (Auto) (0.0-7.0) % Baso % (Auto) (0.0-1.5) % Neut # (Auto) (1.4-5.7) K/uL Lymph # (Auto) (0.6-2.4) K/uL [place] # (Auto) (0.0-0.8) K/uL Eos # (Auto) (0.0-0.7) K/uL Baso # (Auto) (0.0-0.1) K/uL Nucleated RBC % /100WBC Nucleated RBCs # K/uL Lactate (0.20-2.00) mmol/L Sodium (136-145) mmol/L Potassium (3.5-5.1) mmol/L Chloride (98-107) mmol/L Carbon Dioxide (21.0-32.0) mmol/L BUN (7.0-18.0) mg/dL Creatinine (0.6-1.0) mg/dL Est Cr Clr Drug Dosing mL/min Estimated GFR (MDRD) ml/min Glucose (74-106) mg/dL POC Glucose 71 (60-110) mg/dL Calcium (8.5-10.1) mg/dL Total Bilirubin (0.2-1.0) mg/dL AST (15-37) IU/L ALT (14-63) IU/L Alkaline Phosphatase (46-116) U/L Total Protein (6.4-8.2) g/dL Albumin (3.4-5.0) g/dL Globulin (2.6-4.0) g/dL Albumin/Globulin Ratio (0.9-1.6) SARS-CoV-2 RNA (ROGELIO) (NEGATIVE) Med Orders - Current: Current Medications Hydrocodone Bitart/Acetaminophen ([place] 325-10 Mg) 1 tab PO Q4H PRN PRN Reason: Pain Last Admin: 11/06/19 07:20 Dose: 1 tab Documented by: Amlodipine Besylate (Norvasc) 10 mg PO BEDTIME [facility] Last Admin: 11/05/19 20:51 Dose: 10 mg Documented by: Apixaban (Eliquis) 5 mg PO BID [facility] Diltiazem HCl (Cardizem Cd) 180 mg PO BEDTIME [facility] Last Admin: 11/05/19 20:52 Dose: 180 mg Documented by: Furosemide (Lasix) 40 mg PO DAILY [facility] Last Admin: 11/06/19 08:09 Dose: 40 mg Documented by: Ceftriaxone Sodium/Dextrose 1 (gm/ Premix) 50 mls @ 100 mls/hr IV Q24H [facility] Last Admin: 11/05/19 15:09 Dose: 100 mls/hr Documented by: Insulin Aspart (Novolog) 0 unit SUBCUT TIDAC [facility]; Protocol Last Admin: 11/06/19 06:30 Dose: Not Given Documented by: Morphine Sulfate (Morphine) 2 mg IVPUSH Q3H PRN PRN Reason: Pain Last Admin: 11/06/19 10:00 Dose: 2 mg Documented by: Ondansetron HCl (Zofran) 4 mg IVPUSH Q4H PRN PRN Reason: Nausea/Vomiting Last Admin: 11/05/19 17:57 Dose: 4 mg Documented by: Potassium Chloride (Klor-Con M20) 20 meq PO DAILY [facility] Last Admin: 11/06/19 08:08 Dose: 20 meq Documented by: Sodium Chloride (Saline Flush) 10 ml FLUSH ASDIRECTED PRN PRN Reason: Keep Vein Open Sodium Chloride (Saline Flush) 2.5 ml FLUSH ASDIRECTED PRN PRN Reason: Keep Vein Open Discontinued Medications Apixaban (Eliquis) 5 mg PO DAILY [facility] Last Admin: 11/06/19 08:08 Dose: 5 mg Documented by: Sodium Chloride (Normal Saline) 1,000 mls @ 999 mls/hr IV STAT ONE Stop: 11/05/19 14:06 Last Admin: 11/05/19 13:25 Dose: 999 mls/hr Documented by: Ceftriaxone Sodium 1 gm/ (Sodium Chloride) 50 mls @ 100 mls/hr IV Q24H [facility] Sodium Chloride (Normal Saline) 1,000 mls @ 999 mls/hr IV .Bolus ONE Stop: 11/05/19 15:37 Last Admin: 11/05/19 15:08 Dose: 999 mls/hr Documented by: Ceftriaxone Sodium/Dextrose 2 (gm/ Premix) 50 mls @ 100 mls/hr IV ONETIME ONE Stop: 11/05/19 15:29 Ceftriaxone Sodium/Dextrose 1 (gm/ Premix) 50 mls @ 100 mls/hr IV Q24H [facility] Sodium Chloride (Normal Saline) 1,000 mls @ 125 mls/hr IV ASDIRECTED [facility] Stop: 11/05/19 22:44 Last Admin: 11/05/19 17:52 Dose: 125 mls/hr Documented by: Ceftriaxone Sodium/Dextrose (Rocephin In Dextrose,Iso-Osm 2 Gm/50 Ml) Confirm Administered Dose 50 mls @ as directed .ROUTE .STK-MED ONE Stop: 11/05/19 14:58 Last Admin: 11/05/19 15:11 Dose: Not Given Documented by: Ceftriaxone Sodium/Dextrose (Rocephin In Dextrose,Iso-Osm 1 Gm/50 Ml) Confirm Administered Dose 50 mls @ as directed .ROUTE .STK-MED ONE Stop: 11/05/19 15:08 Last Admin: 11/05/19 15:13 Dose: Not Given Documented by: Morphine Sulfate (Morphine) 4 mg IVPUSH ONETIME ONE Stop: 11/05/19 15:10 Last Admin: 11/05/19 15:18 Dose: 4 mg Documented by: Morphine Sulfate (Morphine) 4 mg IVPUSH Q3H PRN PRN Reason: Pain Last Admin: 11/05/19 18:48 Dose: 4 mg Documented by: Ondansetron HCl (Zofran) 4 mg IVPUSH ONETIME ONE Stop: 11/05/19 13:07 Last Admin: 11/05/19 13:22 Dose: 4 mg Documented by: Potassium Chloride (Klor-Con M20) 40 meq PO ONETIME ONE Stop: 11/05/19 14:35 Last Admin: 11/05/19 15:00 Dose: 40 meq Documented by: Potassium Chloride (Klor-Con M20) 40 meq PO ONETIME ONE Stop: 11/06/19 08:19 Last Admin: 11/06/19 09:03 Dose: Not Given Documented by: - Exam General: Alert, Oriented Lungs: Clear to Auscultation, Normal Respiratory Effort Cardiovascular: Regular Rate, Regular Rhythm GI/Abdominal Exam: Soft, Non-Tender, No Distention Back Exam: CVA Tenderness (L) Extremities: Non-Tender, No Pedal Edema Sepsis Event Note - Evaluation Sepsis Screening Result: No Definite Risk - Focused Exam Vital Signs: Vital Signs Temp Pulse Resp BP Pulse Ox 11/06/19 08:00 97.5 F 80 20 142/70 H 95 11/06/19 04:17 97.9 F 69 17 115/56 L 95 11/06/19 00:40 97.4 F 80 18 125/59 L 95 - Problem List Review Problem List Initiated/Reviewed/Updated: Yes - My Orders Last 24 Hours: My Active Orders 11/05/19 14:52 [email or web address] [Rocephin in Dextrose,Iso-Osm 1 GM/50 ML] 1 gm Premix Bag 1 bag IV Q24H 11/05/19 Dinner [employer] Diet [DIET] 11/05/19 16:02 Oxygen Therapy [RC] PRN VTE/DVT Education [RC] PER UNIT ROUTINE Vital Signs [RC] Q4H 11/05/19 16:42 Ondansetron [Zofran] 4 mg IVPUSH Q4H PRN 11/05/19 16:59 Code Status [Resuscitation Status] Routine 11/05/19 17:00 Insulin Aspart [NovoLOG] See Protocol SUBCUT TIDAC 11/05/19 17:21 Telemetry Monitoring [Cardiac Monitoring] [RC] Q8H 11/05/19 19:27 Acetaminophen/HYDROcodone [[place] 325-10 MG] 1 tab PO Q4H PRN 11/05/19 21:00 Diltiazem [Cardizem CD] 180 mg PO BEDTIME amLODIPine [Norvasc] 10 mg PO BEDTIME 11/06/19 09:00 Furosemide [Lasix] 40 mg PO DAILY Potassium Chloride [Klor-Con M20] 20 meq PO DAILY 11/06/19 21:00 Apixaban [Eliquis] 5 mg PO BID - Plan Plan:: Assessment/Plan: UTI- 1g Rocephin Q24, 1L NS BOLUS, Encourager PO H20 intake, Zofran 4MG Q4HR PRN, [place] 10mg/325mg Q4HR PRN, Morphine 2mg Q3HR PRN A-Fib- Eliquis, Diltiazem LIVE- Creatinine improving, Encourage PO H2O intake, Monitor AM BMP.
[2019-11-06] MEDS: cefTRIAXone 1 GM in Premix Bag 1 BAG IV SCH (14:05)
[2019-11-06] MEDS ORDERED: cefTRIAXone 1 GM in Premix Bag 1 BAG IV SCH (14:45)
[2019-11-06] MEDS: Cholecalciferol (Vitamin D3) 25 MCG Tab PO SCH (17:50)
[2019-11-06] MEDS: Apixaban 2.5 MG Tab PO SCH (22:04)
[2019-11-06] MEDS: amLODIPine 5 MG Tab PO SCH (22:04)
[2019-11-06] MEDS: Diltiazem 180 MG Cap.CD PO SCH (22:04)
[2019-11-07] MEDS: Acetaminophen/HYDROcodone 325-10 MG Tab PO PRN ×3 (02:22→11:24)
[2019-11-07 07:20] LABS: CARBON DIOXIDE,CO2 30.4 mmol/L (21.0-32.0); POTASSIUM,K 3.7 mmol/L (3.5-5.1)
[2019-11-07] MEDS: Insulin Aspart 100 Units/ML 3 ML Pen SUBCUT SCH ×2 (08:19→12:12)
[2019-11-07] MEDS: Apixaban 2.5 MG Tab PO SCH (08:20)
[2019-11-07] MEDS: Furosemide 40 MG Tab PO SCH (08:20)
[2019-11-07] MEDS: Potassium Chloride 20 MEQ Tab.ER PO SCH (08:21)
[2019-11-07] MEDS: Cholecalciferol (Vitamin D3) 25 MCG Tab PO SCH (08:22)
[2019-11-07 13:48] VITALS: BP 164/88; PULSE 82
--- NOTE | 2019-11-07 18:16 | PCM.DCSUM1 ---
<Zhou Nayak - Last Filed: 11/07/19 18:16> Discharge Summary - Hospital Course Free Text/Narrative:: 59 year old female admitted for UTI and LIVE. Patient was first seen in the ED the morning of admission around 2am for flank pain, back pain, LUQ pain, cloudy urine fever and nausea. She was treated in the ED with IV Rocephin, given a prescription for antibiotics and discharged. Patient re visited the ED later that afternoon for increasing pain and a temperature of 104F. On admission to [facility] medical floor, patient was given 1g Rocephin, IV fluids, pain medication. Patient has a PMH for HTN, A-Fib, Diabetes, Liver Cirrhosis, fibromyalgia. Patient symots improved and she was discharged with Cipro 500mg BID X 5 days. - Discharge Data Discharge Date: 11/07/19 Discharge Disposition: Home, Self-Care 01 Condition: Good - Referral to Home Health Primary Care Physician: Milagros Dean MD - Discharge Plan Prescriptions/Med Rec: Ciprofloxacin [Ciprofloxacin HCl] 500 mg PO BID 5 Days #10 tab Home Medications: Home Meds Furosemide 40 mg PO DAILY 05/14/15 [History] Hydrocodone/Acetaminophen [Hydrocodone-Acetamin 10-325 mg] 1 tab PO Q4H PRN 05/14/15 [History] Insulin Aspart [NovoLOG] 1 dose SUBCUT TIDAC 05/14/15 [History] amLODIPine [Norvasc] 10 mg PO BEDTIME 05/14/15 [History] lisinopriL [Prinivil] 40 mg PO DAILY 05/14/15 [History] Apixaban [Eliquis] 5 mg PO BID 11/05/19 [History] Diltiazem [Dilacor XR] 240 mg PO BEDTIME 11/05/19 [History] Potassium Chloride 20 meq PO DAILY #20 tablet.er 11/05/19 [Rx] Cholecalciferol (Vitamin D3) [Vitamin D] 5,000 unit PO DAILY 11/06/19 [History] Ciprofloxacin [Ciprofloxacin HCl] 500 mg PO BID 5 Days #10 tab 11/07/19 [Rx] Patient Handouts: Type 2 Diabetes Mellitus, Diagnosis, Adult, Enlarged Spleen, Sepsis, Diagnosis, Adult, Urinary Tract Infection, Adult Referrals: Milagros Dean MD [Primary Care Provider] - (Keep your appointment next week, bring information from this hospital stay. ) - Discharge Summary/Plan Comment DC Time >30 min.: No - General Info Date of Service: 11/07/19 Subjective Update: Patient states that she feels much better and is ready to go home. Patient has mild right flank pain, no abdominal pain. Denies fever, chills, nausea, vomiting. - Review of Systems General: Denies: Fever, Chills Pulmonary: Denies: Shortness of Breath, Pleuritic Chest Pain, Cough Cardiovascular: Denies: Chest Pain, Palpitations, Dyspnea on Exertion Gastrointestinal: Denies: Abdominal Pain, Decreased Appetite, Diarrhea, Nausea Genitourinary: Reports: Flank Pain. Denies: Dysuria, Frequency, Burning Neurological: Denies: Dizziness, Headache - Patient Data Vitals - Most Recent: Last Vital Signs Temp 97.3 F 11/07/19 12:00 Pulse 82 11/07/19 12:00 Resp 16 11/07/19 12:00 BP 164/88 H 11/07/19 12:00 Pulse Ox 97 11/07/19 12:00 Weight - Most Recent: 97.522 kg I&O - Last 24 hours: Intake & Output 11/07/19 11/07/19 11/07/19 06:59 14:59 22:59 Intake Total 1570 1500 Output Total 4050 2000 Balance -2480 -500 Lab Results - Last 24 hrs: Laboratory Results - last 24 hr 11/07/19 11/07/19 11/07/19 Range/Units 06:43 06:43 08:18 WBC 2.81 L (4.0-11.0) K/uL RBC 3.64 L (4.30-5.90) M/uL Hgb 11.3 L (12.0-16.0) g/dL Hct 34.1 L (36.0-46.0) % MCV 93.7 (80.0-98.0) fL MCH 31.0 (27.0-32.0) pg MCHC 33.1 (31.0-37.0) g/dL RDW Std Deviation 54.2 (28.0-62.0) fl RDW Coeff of Saranya 16 H (11.0-15.0) % Plt Count 58 L (150-400) K/uL MPV 10.60 (7.40-12.00) fL Neut % (Auto) 72.6 (48.0-80.0) % Lymph % (Auto) 16.4 (16.0-40.0) % [place] % (Auto) 7.8 (0.0-15.0) % Eos % (Auto) 3.2 (0.0-7.0) % Baso % (Auto) 0.0 (0.0-1.5) % Neut # (Auto) 2.0 (1.4-5.7) K/uL Lymph # (Auto) 0.5 L (0.6-2.4) K/uL [place] # (Auto) 0.2 (0.0-0.8) K/uL Eos # (Auto) 0.1 (0.0-0.7) K/uL Baso # (Auto) 0.0 (0.0-0.1) K/uL Nucleated RBC % 0.0 /100WBC Nucleated RBCs # 0 K/uL Sodium 139 (136-145) mmol/L Potassium 3.7 (3.5-5.1) mmol/L Chloride 101 (98-107) mmol/L Carbon Dioxide 30.4 (21.0-32.0) mmol/L BUN 14 (7.0-18.0) mg/dL Creatinine 1.0 (0.6-1.0) mg/dL Est Cr Clr Drug Dosing 61.86 mL/min Estimated GFR (MDRD) 56.9 ml/min Glucose 122 H (74-106) mg/dL POC Glucose 118 H (60-110) mg/dL Calcium 8.9 (8.5-10.1) mg/dL 11/07/19 Range/Units 12:04 WBC (4.0-11.0) K/uL RBC (4.30-5.90) M/uL Hgb (12.0-16.0) g/dL Hct (36.0-46.0) % MCV (80.0-98.0) fL MCH (27.0-32.0) pg MCHC (31.0-37.0) g/dL RDW Std Deviation (28.0-62.0) fl RDW Coeff of Saranya (11.0-15.0) % Plt Count (150-400) K/uL MPV (7.40-12.00) fL Neut % (Auto) (48.0-80.0) % Lymph % (Auto) (16.0-40.0) % [place] % (Auto) (0.0-15.0) % Eos % (Auto) (0.0-7.0) % Baso % (Auto) (0.0-1.5) % Neut # (Auto) (1.4-5.7) K/uL Lymph # (Auto) (0.6-2.4) K/uL [place] # (Auto) (0.0-0.8) K/uL Eos # (Auto) (0.0-0.7) K/uL Baso # (Auto) (0.0-0.1) K/uL Nucleated RBC % /100WBC Nucleated RBCs # K/uL Sodium (136-145) mmol/L Potassium (3.5-5.1) mmol/L Chloride (98-107) mmol/L Carbon Dioxide (21.0-32.0) mmol/L BUN (7.0-18.0) mg/dL Creatinine (0.6-1.0) mg/dL Est Cr Clr Drug Dosing mL/min Estimated GFR (MDRD) ml/min Glucose (74-106) mg/dL POC Glucose 172 H (60-110) mg/dL Calcium (8.5-10.1) mg/dL HARESH Results - Last 24 hrs: Microbiology 11/05/19 13:25 Aerobic Blood Culture - Preliminary Blood - Venous - Lab Draw NO GROWTH AFTER 2 DAYS Anaerobic Blood Culture - Preliminary NO GROWTH AFTER 2 DAYS 11/05/19 13:15 Aerobic Blood Culture - Preliminary Blood - Venous NO GROWTH AFTER 2 DAYS Anaerobic Blood Culture - Preliminary NO GROWTH AFTER 2 DAYS 11/05/19 02:30 Urine Culture - Final Urine, Clean Catch Escherichia Coli Med Orders - Current: Current Medications Discontinued Medications Hydrocodone Bitart/Acetaminophen ([place] 325-10 Mg) 1 tab PO Q4H PRN PRN Reason: Pain Last Admin: 11/07/19 11:24 Dose: 1 tab Documented by: Amlodipine Besylate (Norvasc) 10 mg PO BEDTIME JANIE Last Admin: 11/06/19 22:04 Dose: 10 mg Documented by: Apixaban (Eliquis) 5 mg PO DAILY JANIE Last Admin: 11/06/19 08:08 Dose: 5 mg Documented by: Apixaban (Eliquis) 5 mg PO BID [facility] Last Admin: 11/07/19 08:20 Dose: 5 mg Documented by: Cholecalciferol (Vitamin D3) 100 mcg PO DAILY [facility] Last Admin: 11/07/19 08:22 Dose: 100 mcg Documented by: Diltiazem HCl (Cardizem Cd) 180 mg PO BEDTIME [facility] Last Admin: 11/06/19 22:04 Dose: 180 mg Documented by: Furosemide (Lasix) 40 mg PO DAILY [facility] Last Admin: 11/07/19 08:20 Dose: 40 mg Documented by: Sodium Chloride (Normal Saline) 1,000 mls @ 999 mls/hr IV STAT ONE Stop: 11/05/19 14:06 Last Admin: 11/05/19 13:25 Dose: 999 mls/hr Documented by: Ceftriaxone Sodium 1 gm/ (Sodium Chloride) 50 mls @ 100 mls/hr IV Q24H [facility] Sodium Chloride (Normal Saline) 1,000 mls @ 999 mls/hr IV .Bolus ONE Stop: 11/05/19 15:37 Last Admin: 11/05/19 15:08 Dose: 999 mls/hr Documented by: Ceftriaxone Sodium/Dextrose 2 (gm/ Premix) 50 mls @ 100 mls/hr IV ONETIME ONE Stop: 11/05/19 15:29 Ceftriaxone Sodium/Dextrose 1 (gm/ Premix) 50 mls @ 100 mls/hr IV Q24H [facility] Sodium Chloride (Normal Saline) 1,000 mls @ 125 mls/hr IV ASDIRECTED JANIE Stop: 11/05/19 22:44 Last Admin: 11/05/19 17:52 Dose: 125 mls/hr Documented by: Ceftriaxone Sodium/Dextrose 1 (gm/ Premix) 50 mls @ 100 mls/hr IV Q24H [facility] Last Admin: 11/06/19 14:05 Dose: 100 mls/hr Documented by: Ceftriaxone Sodium/Dextrose (Rocephin In Dextrose,Iso-Osm 2 Gm/50 Ml) Confirm Administered Dose 50 mls @ as directed .ROUTE .STK-MED ONE Stop: 11/05/19 14:58 Last Admin: 11/05/19 15:11 Dose: Not Given Documented by: Ceftriaxone Sodium/Dextrose (Rocephin In Dextrose,Iso-Osm 1 Gm/50 Ml) Confirm Administered Dose 50 mls @ as directed .ROUTE .STK-MED ONE Stop: 11/05/19 15:08 Last Admin: 11/05/19 15:13 Dose: Not Given Documented by: Insulin Aspart (Novolog) 0 unit SUBCUT TIDAC [facility]; Protocol Last Admin: 11/07/19 12:12 Dose: Not Given Documented by: Morphine Sulfate (Morphine) 4 mg IVPUSH ONETIME ONE Stop: 11/05/19 15:10 Last Admin: 11/05/19 15:18 Dose: 4 mg Documented by: Morphine Sulfate (Morphine) 4 mg IVPUSH Q3H PRN PRN Reason: Pain Last Admin: 11/05/19 18:48 Dose: 4 mg Documented by: Morphine Sulfate (Morphine) 2 mg IVPUSH Q3H PRN PRN Reason: Pain Last Admin: 11/06/19 17:43 Dose: 2 mg Documented by: Ondansetron HCl (Zofran) 4 mg IVPUSH ONETIME ONE Stop: 11/05/19 13:07 Last Admin: 11/05/19 13:22 Dose: 4 mg Documented by: Ondansetron HCl (Zofran) 4 mg IVPUSH Q4H PRN PRN Reason: Nausea/Vomiting Last Admin: 11/05/19 17:57 Dose: 4 mg Documented by: Potassium Chloride (Klor-Con M20) 40 meq PO ONETIME ONE Stop: 11/05/19 14:35 Last Admin: 11/05/19 15:00 Dose: 40 meq Documented by: Potassium Chloride (Klor-Con M20) 20 meq PO DAILY [facility] Last Admin: 11/07/19 08:21 Dose: 20 meq Documented by: Potassium Chloride (Klor-Con M20) 40 meq PO ONETIME ONE Stop: 11/06/19 08:19 Last Admin: 11/06/19 09:03 Dose: Not Given Documented by: Sodium Chloride (Saline Flush) 10 ml FLUSH ASDIRECTED PRN PRN Reason: Keep Vein Open Sodium Chloride (Saline Flush) 2.5 ml FLUSH ASDIRECTED PRN PRN Reason: Keep Vein Open - Exam General: Reports: Alert, Oriented Lungs: Reports: Clear to Auscultation, Normal Respiratory Effort Cardiovascular: Reports: Regular Rate, Regular Rhythm GI/Abdominal Exam: Soft, Non-Tender, No Distention Back Exam: Reports: CVA Tenderness (R) (mild pain, significantly improved since admission) Extremities: No Pedal Edema Skin: Reports: Warm, Dry Neurological: Reports: Normal Speech, Normal Tone Psy/Mental Status: Reports: Alert, Normal Affect <Ted Motta - Last Filed: 11/09/19 13:20> Discharge Summary - Hospital Course Free Text/Narrative:: I have seen and evaluated the patient and agree with the residents note unless specified in my note - Referral to Home Health Primary Care Physician: Milagros Dean MD - Patient Data Vitals - Most Recent: Last Vital Signs Temp 36.3 C 11/07/19 12:00 Pulse 82 11/07/19 12:00 Resp 16 11/07/19 12:00 BP 164/88 H 11/07/19 12:00 Pulse Ox 97 11/07/19 12:00 HARESH Results - Last 24 hrs: Microbiology 11/05/19 13:25 Aerobic Blood Culture - Preliminary Blood - Venous - Lab Draw NO GROWTH AFTER 3 DAYS Anaerobic Blood Culture - Preliminary NO GROWTH AFTER 3 DAYS 11/05/19 13:15 Aerobic Blood Culture - Preliminary Blood - Venous NO GROWTH AFTER 3 DAYS Anaerobic Blood Culture - Preliminary NO GROWTH AFTER 3 DAYS Med Orders - Current: Current Medications Discontinued Medications Hydrocodone Bitart/Acetaminophen ([place] 325-10 Mg) 1 tab PO Q4H PRN PRN Reason: Pain Last Admin: 11/07/19 11:24 Dose: 1 tab Documented by: Amlodipine Besylate (Norvasc) 10 mg PO BEDTIME [facility] Last Admin: 11/06/19 22:04 Dose: 10 mg Documented by: Apixaban (Eliquis) 5 mg PO DAILY [facility] Last Admin: 11/06/19 08:08 Dose: 5 mg Documented by: Apixaban (Eliquis) 5 mg PO BID [facility] Last Admin: 11/07/19 08:20 Dose: 5 mg Documented by: Cholecalciferol (Vitamin D3) 100 mcg PO DAILY [facility] Last Admin: 11/07/19 08:22 Dose: 100 mcg Documented by: Diltiazem HCl (Cardizem Cd) 180 mg PO BEDTIME [facility] Last Admin: 11/06/19 22:04 Dose: 180 mg Documented by: Furosemide (Lasix) 40 mg PO DAILY [facility] Last Admin: 11/07/19 08:20 Dose: 40 mg Documented by: Sodium Chloride (Normal Saline) 1,000 mls @ 999 mls/hr IV STAT ONE Stop: 11/05/19 14:06 Last Admin: 11/05/19 13:25 Dose: 999 mls/hr Documented by: Ceftriaxone Sodium 1 gm/ (Sodium Chloride) 50 mls @ 100 mls/hr IV Q24H JANIE Sodium Chloride (Normal Saline) 1,000 mls @ 999 mls/hr IV .Bolus ONE Stop: 11/05/19 15:37 Last Admin: 11/05/19 15:08 Dose: 999 mls/hr Documented by: Ceftriaxone Sodium/Dextrose 2 (gm/ Premix) 50 mls @ 100 mls/hr IV ONETIME ONE Stop: 11/05/19 15:29 Ceftriaxone Sodium/Dextrose 1 (gm/ Premix) 50 mls @ 100 mls/hr IV Q24H JANIE Sodium Chloride (Normal Saline) 1,000 mls @ 125 mls/hr IV ASDIRECTED [facility] Stop: 11/05/19 22:44 Last Admin: 11/05/19 17:52 Dose: 125 mls/hr Documented by: Ceftriaxone Sodium/Dextrose 1 (gm/ Premix) 50 mls @ 100 mls/hr IV Q24H [facility] Last Admin: 11/06/19 14:05 Dose: 100 mls/hr Documented by: Ceftriaxone Sodium/Dextrose (Rocephin In Dextrose,Iso-Osm 2 Gm/50 Ml) Confirm Administered Dose 50 mls @ as directed .ROUTE .STK-MED ONE Stop: 11/05/19 14:58 Last Admin: 11/05/19 15:11 Dose: Not Given Documented by: Ceftriaxone Sodium/Dextrose (Rocephin In Dextrose,Iso-Osm 1 Gm/50 Ml) Confirm Administered Dose 50 mls @ as directed .ROUTE .STK-MED ONE Stop: 11/05/19 15:08 Last Admin: 11/05/19 15:13 Dose: Not Given Documented by: Insulin Aspart (Novolog) 0 unit SUBCUT TIDAC [facility]; Protocol Last Admin: 11/07/19 12:12 Dose: Not Given Documented by: Morphine Sulfate (Morphine) 4 mg IVPUSH ONETIME ONE Stop: 11/05/19 15:10 Last Admin: 11/05/19 15:18 Dose: 4 mg Documented by: Morphine Sulfate (Morphine) 4 mg IVPUSH Q3H PRN PRN Reason: Pain Last Admin: 11/05/19 18:48 Dose: 4 mg Documented by: Morphine Sulfate (Morphine) 2 mg IVPUSH Q3H PRN PRN Reason: Pain Last Admin: 11/06/19 17:43 Dose: 2 mg Documented by: Ondansetron HCl (Zofran) 4 mg IVPUSH ONETIME ONE Stop: 11/05/19 13:07 Last Admin: 11/05/19 13:22 Dose: 4 mg Documented by: Ondansetron HCl (Zofran) 4 mg IVPUSH Q4H PRN PRN Reason: Nausea/Vomiting Last Admin: 11/05/19 17:57 Dose: 4 mg Documented by: Potassium Chloride (Klor-Con M20) 40 meq PO ONETIME ONE Stop: 11/05/19 14:35 Last Admin: 11/05/19 15:00 Dose: 40 meq Documented by: Potassium Chloride (Klor-Con M20) 20 meq PO DAILY JANIE Last Admin: 11/07/19 08:21 Dose: 20 meq Documented by: Potassium Chloride (Klor-Con M20) 40 meq PO ONETIME ONE Stop: 11/06/19 08:19 Last Admin: 11/06/19 09:03 Dose: Not Given Documented by: Sodium Chloride (Saline Flush) 10 ml FLUSH ASDIRECTED PRN PRN Reason: Keep Vein Open Sodium Chloride (Saline Flush) 2.5 ml FLUSH ASDIRECTED PRN PRN Reason: Keep Vein Open
== END 2019-11-07 14:10 | disposition home or self-care (01) | DRG 872 ==
LOC: MW.ED 12:40 → MW.MS 13:42
PROVIDERS: ADMIT Internal Medicine; ATTEND Internal Medicine
DX: A41.9 Sepsis, unspecified organism (principal); N17.9 Acute kidney failure, unspecified; N39.0 Urinary tract infection, site not specified; K74.60 Unspecified cirrhosis of liver; I10 Essential (primary) hypertension; E87.6 Hypokalemia; I11.0 Hypertensive heart disease with heart failure; L40.9 Psoriasis, unspecified; I50.9 Heart failure, unspecified; Z20.828 Contact with and (suspected) exposure to other viral communicable diseases; Z88.8 Allergy status to other drugs, medicaments and biological substances; R16.1 Splenomegaly, not elsewhere classified; Z79.01 Long term (current) use of anticoagulants; I48.91 Unspecified atrial fibrillation; E11.9 Type 2 diabetes mellitus without complications; Z90.710 Acquired absence of both cervix and uterus; Z79.4 Long term (current) use of insulin; Z79.899 Other long term (current) drug therapy; Z88.0 Allergy status to penicillin; Z88.5 Allergy status to narcotic agent; Z91.040 Latex allergy status
CPT/HCPCS: 36415; 80048; 80053; 82962; 83605; 85025; 87040; 87086; 87088; 87186; 96374; 99222; 99231; 99238; 99284; 99284-25; A9270-GY; J0696; J2270; J2405; J7030; U0002

== ENCOUNTER 2020-04-17 16:05 | Observation (INO) | payer OTHER ==
--- NOTE | 2020-04-17 16:32 | EDM.PDOC ---
ED HPI GENERAL MEDICAL PROBLEM - General Chief Complaint: General Stated Complaint: REFERRED Time Seen by Provider: 04/17/20 16:11 Source of Information: Reports: Patient History Limitations: Reports: No Limitations - History of Present Illness INITIAL COMMENTS - FREE TEXT/NARRATIVE: Patient is a 59-year-old female who was sent here for having low potassium outside lab draw. Patient states that she was told by PMD to go directly to the ER for repletion. Patient otherwise states she has no symptoms and states she did not receive a call she would not have come to the hospital for any other reason. Patient is unsure of her medication that she takes. Generalized Pain Score (Numeric/FACES): 3 - Related Data Allergies Allergy/AdvReac Type Severity Reaction Status Date / Time codeine Allergy Other Verified 04/17/20 16:18 latex Allergy Hives Verified 04/17/20 16:18 Penicillins Allergy Hives Verified 04/17/20 16:18 promethazine Allergy Cannot Verified 04/17/20 16:18 Remember Home Meds: Home Meds Furosemide 40 mg PO QAM 05/14/15 [History] Insulin Aspart [NovoLOG] 16 units SUBCUT TIDAC 05/14/15 [History] amLODIPine [Norvasc] 10 mg PO DAILY 05/14/15 [History] lisinopriL [Prinivil] 40 mg PO DAILY 05/14/15 [History] Apixaban [Eliquis] 5 mg PO BID 11/05/19 [History] Diltiazem [Dilacor XR] 240 mg PO DAILY 11/05/19 [History] Dicyclomine [Bentyl] 10 mg PO Q6H 04/17/20 [History] Fluocinonide [Lidex 0.05% Top Soln] 1 applic TOP BID PRN 04/17/20 [History] carisoprodoL [Carisoprodol] 350 mg PO TID PRN 04/17/20 [History] Past Medical History HEENT History: Reports: Sinusitis Cardiovascular History: Reports: Heart Failure, Heart Murmur, Hypertension [employer] History: Reports: Musculoskeletal History: Reports: Fibromyalgia Endocrine/Metabolic History: Reports: Diabetes, Type II Dermatologic History: Reports: Psoriasis - Infectious Disease History Infectious Disease History: Reports: Chicken Pox, Measles - Past Surgical History HEENT Surgical History: Reports: Tonsillectomy Female Surgical History: Reports: Section, Hysterectomy Social & Family History - Family History Family Medical History: No Pertinent Family History - Tobacco Use Tobacco Use Status *Q: Never Tobacco User - Caffeine Use Caffeine Use: Reports: Coffee - Recreational Drug Use Recreational Drug Use: No ED ROS GENERAL - Review of Systems Review Of Systems: See Below Constitutional: Reports: No Symptoms HEENT: Reports: No Symptoms Respiratory: Reports: No Symptoms Cardiovascular: Reports: No Symptoms Endocrine: Reports: No Symptoms GI/Abdominal: Reports: No Symptoms : Reports: No Symptoms Musculoskeletal: Reports: No Symptoms Skin: Reports: No Symptoms Neurological: Reports: No Symptoms Psychiatric: Reports: No Symptoms Hematologic/Lymphatic: Reports: No Symptoms Immunologic: Reports: No Symptoms ED EXAM, GENERAL - Physical Exam Exam: See Below Exam Limited By: No Limitations General Appearance: Alert, WD/WN Eye Exam: Bilateral Eye: EOMI, PERRL Respiratory/Chest: No Respiratory Distress, Lungs Clear Cardiovascular: Normal Peripheral Pulses, Regular Rate, Rhythm GI/Abdominal: Normal Bowel Sounds, Soft, Non-Tender Neurological: Alert, Oriented, Normal Cognition, Normal Gait #1 Interpretation EKG Date: 04/17/20 Time: 17:46 Rhythm: NSR Rate (Beats/Min): 89 QT: Prolonged Course - Vital Signs Last Recorded V/S: Last Vital Signs Temp 97.6 F 04/17/20 16:18 Pulse 89 04/17/20 17:45 Resp 17 04/17/20 17:45 BP 151/69 H 04/17/20 17:45 Pulse Ox 96 04/17/20 17:45 - Orders/Labs/Meds Orders: Active Orders 24 hr Category Date Time Status EKG 12 Lead [EKG Documentation Completion] [RC] STAT Care 04/17/20 17:29 Active Chest 1V Frontal [CR] Stat Exams 04/17/20 18:06 Ordered Magnesium Sulfate/Water [Magnesium Sulfate in Water 2 Med 04/17/20 18:09 Active GM/50 ML] 2 gm in 50 ml IV ONETIME Potassium Chloride Riders [KCL in Water 40 MEQ/100 ML] Med 04/17/20 17:52 Acti ve 40 meq Premix Bag 1 bag IV ONETIME Medication Orders Potassium Chloride 40 meq/ (Premix) 100 mls @ 25 mls/hr IV ONETIME ONE Stop: 04/17/20 21:51 Magnesium Sulfate (Magnesium Sulfate In Water 2 Gm/50 Ml) 2 gm in 50 mls @ 50 mls/hr IV ONETIME ONE Stop: 04/17/20 19:08 Labs: Laboratory Tests 04/17/20 04/17/20 04/17/20 Range/Units 16:53 16:53 16:53 WBC 2.27 L (4.0-11.0) K/uL RBC 3.73 L (4.30-5.90) M/uL Hgb 11.0 L (12.0-16.0) g/dL Hct 33.0 L (36.0-46.0) % MCV 88.5 (80.0-98.0) fL MCH 29.5 (27.0-32.0) pg MCHC 33.3 (31.0-37.0) g/dL RDW Std Deviation 52.8 (28.0-62.0) fl RDW Coeff of [place] 16 H (11.0-15.0) % Plt Count 74 L (150-400) K/uL MPV 11.00 (7.40-12.00) fL Neut % (Auto) 73.2 (48.0-80.0) % Lymph % (Auto) 16.3 (16.0-40.0) % [place] % (Auto) 7.0 (0.0-15.0) % Eos % (Auto) 3.5 (0.0-7.0) % Baso % (Auto) 0.0 (0.0-1.5) % Neut # (Auto) 1.7 (1.4-5.7) K/uL Lymph # (Auto) 0.4 L (0.6-2.4) K/uL [place] # (Auto) 0.2 (0.0-0.8) K/uL Eos # (Auto) 0.1 (0.0-0.7) K/uL Baso # (Auto) 0.0 (0.0-0.1) K/uL Nucleated RBC % 0.0 /100WBC Nucleated RBCs # 0 K/uL INR 1.40 APTT 33.6 H (18.6-31.3) SEC Sodium 137 (136-145) mmol/L Potassium 2.5 L (3.5-5.1) mmol/L Chloride 98 (98-107) mmol/L Carbon Dioxide 28.2 (21.0-32.0) mmol/L BUN 11 (7.0-18.0) mg/dL Creatinine 1.3 H (0.6-1.0) mg/dL Est Cr Clr Drug Dosing 47.58 mL/min Estimated GFR (MDRD) 42.1 ml/min Glucose 171 H (74-106) mg/dL Calcium 8.8 (8.5-10.1) mg/dL Phosphorus (2.6-4.7) mg/dL Magnesium (1.8-2.4) mg/dL Total Bilirubin 0.9 (0.2-1.0) mg/dL AST 19 (15-37) IU/L ALT 13 L (14-63) IU/L Alkaline Phosphatase 122 H (46-116) U/L Total Protein 6.9 (6.4-8.2) g/dL Albumin 3.3 L (3.4-5.0) g/dL Globulin 3.6 (2.6-4.0) g/dL Albumin/Globulin Ratio 0.9 (0.9-1.6) 04/17/20 Range/Units 16:53 WBC (4.0-11.0) K/uL RBC (4.30-5.90) M/uL Hgb (12.0-16.0) g/dL Hct (36.0-46.0) % MCV (80.0-98.0) fL MCH (27.0-32.0) pg MCHC (31.0-37.0) g/dL RDW Std Deviation (28.0-62.0) fl RDW Coeff of [place] (11.0-15.0) % Plt Count (150-400) K/uL MPV (7.40-12.00) fL Neut % (Auto) (48.0-80.0) % Lymph % (Auto) (16.0-40.0) % [place] % (Auto) (0.0-15.0) % Eos % (Auto) (0.0-7.0) % Baso % (Auto) (0.0-1.5) % Neut # (Auto) (1.4-5.7) K/uL Lymph # (Auto) (0.6-2.4) K/uL [place] # (Auto) (0.0-0.8) K/uL Eos # (Auto) (0.0-0.7) K/uL Baso # (Auto) (0.0-0.1) K/uL Nucleated RBC % /100WBC Nucleated RBCs # K/uL INR APTT (18.6-31.3) SEC Sodium (136-145) mmol/L Potassium (3.5-5.1) mmol/L Chloride (98-107) mmol/L Carbon Dioxide (21.0-32.0) mmol/L BUN (7.0-18.0) mg/dL Creatinine (0.6-1.0) mg/dL Est Cr Clr Drug Dosing mL/min Estimated GFR (MDRD) ml/min Glucose (74-106) mg/dL Calcium (8.5-10.1) mg/dL Phosphorus 3.1 (2.6-4.7) mg/dL Magnesium 1.5 L (1.8-2.4) mg/dL Total Bilirubin (0.2-1.0) mg/dL AST (15-37) IU/L ALT (14-63) IU/L Alkaline Phosphatase (46-116) U/L Total Protein (6.4-8.2) g/dL Albumin (3.4-5.0) g/dL Globulin (2.6-4.0) g/dL Albumin/Globulin Ratio (0.9-1.6) Meds: Medications Generic Name Dose Route Start Last Admin Trade Name Freq PRN Reason Stop Dose Admin Potassium Chloride 40 meq/ 100 mls @ 25 mls/hr 04/17/20 17:52 Premix IV 04/17/20 21:51 ONETIME ONE Magnesium Sulfate 2 gm in 50 mls @ 50 mls/hr 04/17/20 18:09 Magnesium Sulfate In Water 2 Gm/50 Ml IV 04/17/20 19:08 ONETIME ONE Discontinued Medications Generic Name Dose Route Start Last Admin Trade Name Freq PRN Reason Stop Dose Admin Magnesium Sulfate 2 gm 04/17/20 18:03 Magnesium Sulfate 50% IV 04/17/20 18:04 NOW STA Potassium Chloride 40 meq 04/17/20 17:51 Potassium Chloride Solution PO 04/17/20 17:52 ONETIME ONE - Re-Assessments/Exams Free Text/Narrative Re-Assessment/Exam: 04/17/20 18:16 Patient potassium is 2.5 as well as low magnesium. Patient also has some prolonged QT on EKG. we will admit patient to telemetry. Patient electrolytes will be repleted as well. Departure - Departure Time of Disposition: 18:17 Disposition: Admitted As Inpatient 67 Condition: Good Clinical Impression: Hypokalemia - Discharge Information *PRESCRIPTION DRUG MONITORING PROGRAM REVIEWED*: Not Applicable *COPY OF PRESCRIPTION DRUG MONITORING REPORT IN PATIENT RADHA: Not Applicable Referrals: Milagros Dean MD [Primary Care Provider] - Forms: ED Department Discharge Sepsis Event Note (ED) - Evaluation Sepsis Screening Result: No Definite Risk - Focused Exam Vital Signs: Vital Signs Temp Pulse Resp BP Pulse Ox 04/17/20 17:45 89 17 151/69 H 96 04/17/20 16:18 97.6 F 90 20 138/70 95 - My Orders Last 24 Hours: My Active Orders 04/17/20 17:29 EKG 12 Lead [EKG Documentation Completion] [RC] STAT 04/17/20 17:52 Potassium Chloride Riders [KCL in Water 40 MEQ/100 ML] 40 meq Premix Bag 1 bag IV ONETIME 04/17/20 18:06 Chest 1V Frontal [CR] Stat 04/17/20 18:09 Magnesium Sulfate/Water [Magnesium Sulfate in Water 2 GM/50 ML] 2 gm in 50 ml IV ONETIME - Assessment/Plan Last 24 Hours: My Active Orders 04/17/20 17:29 EKG 12 Lead [EKG Documentation Completion] [RC] STAT 04/17/20 17:52 Potassium Chloride Riders [KCL in Water 40 MEQ/100 ML] 40 meq Premix Bag 1 bag IV ONETIME 04/17/20 18:06 Chest 1V Frontal [CR] Stat 04/17/20 18:09 Magnesium Sulfate/Water [Magnesium Sulfate in Water 2 GM/50 ML] 2 gm in 50 ml IV ONETIME Plan: Patient is a 59-year-old female who presents today for abnormal labs. Patient that she has low potassium. Will repeat labs and reassess afterwards.
[2020-04-17 17:30] LABS: CARBON DIOXIDE,CO2 28.2 mmol/L (21.0-32.0); POTASSIUM,K 2.5 mmol/L (3.5-5.1)
[2020-04-17] MEDS ORDERED: Potassium Chloride 10% 20 MEQ/15 ML Soln 15 ML UD Cup PO ONE (17:51)
[2020-04-17] MEDS ORDERED: Potassium Chloride Riders 40 MEQ in Premix Bag 1 BAG IV ONE (17:52)
[2020-04-17] MEDS ORDERED: Magnesium Sulfate (4.06 MEQ/ML) 5 GM/10 ML SDV IV STA (18:03)
[2020-04-17] MEDS ORDERED: Magnesium Sulfate/Water 2 GM/50 ML BAG IV ONE (18:09)
[2020-04-17] MEDS ORDERED: Potassium Chloride 10% 20 MEQ/15 ML Soln 30 ML UD Cup PO ONE (18:30)
--- NOTE | 2020-04-17 18:40 | CR ---
HISTORY: Hypokalemia. COMPARISON: None available FINDINGS: A portable semi-erect AP view of the chest was obtained at 18 15 hours. The lungs are clear. No focal or diffuse infiltrates are present. The heart is normal in size. The mediastinum is normal in appearance. The osseous structures are normal in appearance for the patient`s age. IMPRESSION: Normal portable chest single view. Dictated by Jarrett Gomez MD @ Apr 17 2020 6:39PM Signed by Dr. Jarrett Gomez @ Apr 17 2020 6:40PM
--- NOTE | 2020-04-17 18:53 | PCM.HP.2 ---
H&P History of Present Illness - General Date of Service: 04/17/20 Admit Problem/Dx: Admission Diagnosis/Problem Admission Diagnosis/Problem Hypokalemia Source of Information: Patient History Limitations: Reports: No Limitations - History of Present Illness Initial Comments - Free Text/Narative: 59-year-old female presents today stating that she was told to go to the ER bec ause she had a critically low potassium level. She has a PMH of HTN, a-fib, DM type 2, NAFLD, chronic thrombocytopenia and fibromyalgia. Patient was at an appointment with her patient account analyst in [place] earlier today for NAFLD follow-up. She had labs drawn and on her way back to [place], she was called and told about her low potassium level. She states that she feels fairly well but does have some mild fatigue, mild shortness of breath and will have palpitations on exertion. She has not had any fevers, chills, sore throat, cough, chest pain, nausea, vomiting, abdominal pain, diarrhea, blood in stool, blood in urine, numbness or tingling in extremities. In the ER, EKG showed NSR with prolonged QTc. Platelets 74, potassium 2.5, magnesium 1.5 and creatinine 1.3. CXR was unremarkable. Patient was given IV mag sulfate 2 mg, IV KCl 40 mEq and PO KCl 40 mEq. She was admitted for further evaluation and treatment. Generalized Pain Score (Numeric/FACES): 3 - Related Data Allergies/Adverse Reactions: Allergies Allergy/AdvReac Type Severity Reaction Status Date / Time codeine Allergy Other Verified 04/17/20 16:18 latex Allergy Hives Verified 04/17/20 16:18 Penicillins Allergy Hives Verified 04/17/20 16:18 promethazine Allergy Cannot Verified 04/17/20 16:18 Remember Home Medications: Home Meds Furosemide 40 mg PO QAM 05/14/15 [History] Insulin Aspart [NovoLOG] 16 units SUBCUT TIDAC 05/14/15 [History] amLODIPine [Norvasc] 10 mg PO DAILY 05/14/15 [History] lisinopriL [Prinivil] 40 mg PO DAILY 05/14/15 [History] Apixaban [Eliquis] 5 mg PO BID 11/05/19 [History] Diltiazem [Dilacor XR] 240 mg PO DAILY 11/05/19 [History] Dicyclomine [Bentyl] 10 mg PO Q6H 04/17/20 [History] Fluocinonide [Lidex 0.05% Top Soln] 1 applic TOP BID PRN 04/17/20 [History] carisoprodoL [Carisoprodol] 350 mg PO TID PRN 04/17/20 [History] Past Medical History HEENT History: Reports: Sinusitis Cardiovascular History: Reports: Heart Failure, Heart Murmur, Hypertension 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: Musculoskeletal History: Reports: Fibromyalgia Endocrine/Metabolic History: Reports: Diabetes, Type II Dermatologic History: Reports: Psoriasis - Infectious Disease History Infectious Disease History: Reports: Chicken Pox, Measles - Past Surgical History HEENT Surgical History: Reports: Tonsillectomy Female Surgical History: Reports: Section, Hysterectomy Social & Family History - Family History Family Medical History: No Pertinent Family History - Tobacco Use Tobacco Use Status *Q: Never Tobacco User - Caffeine Use Caffeine Use: Reports: Coffee - Recreational Drug Use Recreational Drug Use: No H&P Review of Systems - Review of Systems: Review Of Systems: Comprehensive ROS is negative, except as noted in HPI. Exam - Exam Exam: See Below - Vital Signs Vital Signs: Last Vital Signs Temp 36.4 C 04/17/20 16:18 Pulse 89 04/17/20 17:45 Resp 17 04/17/20 17:45 BP 151/69 H 04/17/20 17:45 Pulse Ox 96 04/17/20 17:45 Weight: 96.615 kg - Exam General: Alert, Oriented, Cooperative, Other (NAD) HEENT: Conjunctiva Clear, EOMI, Hearing Intact, Pupils Equal, Pupils Reactive Neck: Supple, Trachea Midline Lungs: Clear to Auscultation, Normal Respiratory Effort Cardiovascular: Regular Rate, Regular Rhythm GI/Abdominal Exam: Normal Bowel Sounds, Soft, Non-Tender, No Distention Extremities: Other (trace edema b/l) Skin: Warm, Dry, Intact Neurological: Cranial Nerves Intact, Strength Equal Bilateral, Normal Speech, Normal Tone Neuro Extensive - Mental Status: Alert, Oriented x3, Normal Mood/Affect Psychiatric: Alert, Normal Affect, Normal Mood - Patient Data Lab Results Last 24 hrs: Laboratory Results - last 24 hr 04/17/20 04/17/20 04/17/20 Range/Units 16:53 16:53 16:53 WBC 2.27 L (4.0-11.0) K/uL RBC 3.73 L (4.30-5.90) M/uL Hgb 11.0 L (12.0-16.0) g/dL Hct 33.0 L (36.0-46.0) % MCV 88.5 (80.0-98.0) fL MCH 29.5 (27.0-32.0) pg MCHC 33.3 (31.0-37.0) g/dL RDW Std Deviation 52.8 (28.0-62.0) fl RDW Coeff of Saranya 16 H (11.0-15.0) % Plt Count 74 L (150-400) K/uL MPV 11.00 (7.40-12.00) fL Neut % (Auto) 73.2 (48.0-80.0) % Lymph % (Auto) 16.3 (16.0-40.0) % [place] % (Auto) 7.0 (0.0-15.0) % Eos % (Auto) 3.5 (0.0-7.0) % Baso % (Auto) 0.0 (0.0-1.5) % Neut # (Auto) 1.7 (1.4-5.7) K/uL Lymph # (Auto) 0.4 L (0.6-2.4) K/uL [place] # (Auto) 0.2 (0.0-0.8) K/uL Eos # (Auto) 0.1 (0.0-0.7) K/uL Baso # (Auto) 0.0 (0.0-0.1) K/uL Nucleated RBC % 0.0 /100WBC Nucleated RBCs # 0 K/uL INR 1.40 APTT 33.6 H (18.6-31.3) SEC Sodium 137 (136-145) mmol/L Potassium 2.5 L (3.5-5.1) mmol/L Chloride 98 (98-107) mmol/L Carbon Dioxide 28.2 (21.0-32.0) mmol/L BUN 11 (7.0-18.0) mg/dL Creatinine 1.3 H (0.6-1.0) mg/dL Est Cr Clr Drug Dosing 47.58 mL/min Estimated GFR (MDRD) 42.1 ml/min Glucose 171 H (74-106) mg/dL Calcium 8.8 (8.5-10.1) mg/dL Phosphorus (2.6-4.7) mg/dL Magnesium (1.8-2.4) mg/dL Total Bilirubin 0.9 (0.2-1.0) mg/dL AST 19 (15-37) IU/L ALT 13 L (14-63) IU/L Alkaline Phosphatase 122 H (46-116) U/L Total Protein 6.9 (6.4-8.2) g/dL Albumin 3.3 L (3.4-5.0) g/dL Globulin 3.6 (2.6-4.0) g/dL Albumin/Globulin Ratio 0.9 (0.9-1.6) 04/17/20 Range/Units 16:53 WBC (4.0-11.0) K/uL RBC (4.30-5.90) M/uL Hgb (12.0-16.0) g/dL Hct (36.0-46.0) % MCV (80.0-98.0) fL MCH (27.0-32.0) pg MCHC (31.0-37.0) g/dL RDW Std Deviation (28.0-62.0) fl RDW Coeff of Saranya (11.0-15.0) % Plt Count (150-400) K/uL MPV (7.40-12.00) fL Neut % (Auto) (48.0-80.0) % Lymph % (Auto) (16.0-40.0) % [place] % (Auto) (0.0-15.0) % Eos % (Auto) (0.0-7.0) % Baso % (Auto) (0.0-1.5) % Neut # (Auto) (1.4-5.7) K/uL Lymph # (Auto) (0.6-2.4) K/uL [place] # (Auto) (0.0-0.8) K/uL Eos # (Auto) (0.0-0.7) K/uL Baso # (Auto) (0.0-0.1) K/uL Nucleated RBC % /100WBC Nucleated RBCs # K/uL INR APTT (18.6-31.3) SEC Sodium (136-145) mmol/L Potassium (3.5-5.1) mmol/L Chloride (98-107) mmol/L Carbon Dioxide (21.0-32.0) mmol/L BUN (7.0-18.0) mg/dL Creatinine (0.6-1.0) mg/dL Est Cr Clr Drug Dosing mL/min Estimated GFR (MDRD) ml/min Glucose (74-106) mg/dL Calcium (8.5-10.1) mg/dL Phosphorus 3.1 (2.6-4.7) mg/dL Magnesium 1.5 L (1.8-2.4) mg/dL Total Bilirubin (0.2-1.0) mg/dL AST (15-37) IU/L ALT (14-63) IU/L Alkaline Phosphatase (46-116) U/L Total Protein (6.4-8.2) g/dL Albumin (3.4-5.0) g/dL Globulin (2.6-4.0) g/dL Albumin/Globulin Ratio (0.9-1.6) Result Diagrams: 04/17/20 16:53 04/17/20 16:53 Sepsis Event Note - Evaluation Sepsis Screening Result: No Definite Risk - Focused Exam Vital Signs: Vital Signs Temp Pulse Resp BP Pulse Ox 04/17/20 17:45 89 17 151/69 H 96 04/17/20 16:18 36.4 C 90 20 138/70 95 - Problem List (1) Hypokalemia SNOMED Code(s): 71575276 ICD Code: E87.6 - HYPOKALEMIA Status: Acute Current Visit: Yes (2) NAFLD (nonalcoholic fatty liver disease) SNOMED Code(s): 393258626 ICD Code: K76.0 - FATTY (CHANGE OF) LIVER, NOT ELSEWHERE CLASSIFIED Status: Acute Current Visit: Yes (3) Hypomagnesemia SNOMED Code(s): 971361603 ICD Code: E83.42 - HYPOMAGNESEMIA Status: Acute Current Visit: Yes (4) LIVE (acute kidney injury) SNOMED Code(s): 76864530, 60803047 ICD Code: N17.9 - ACUTE KIDNEY FAILURE, UNSPECIFIED Status: Acute Current Visit: Yes (5) Afib SNOMED Code(s): 40031111 ICD Code: I48.91 - UNSPECIFIED ATRIAL FIBRILLATION Status: Acute Current Visit: Yes (6) Diabetes SNOMED Code(s): 81307700 ICD Code: E11.9 - TYPE 2 DIABETES MELLITUS WITHOUT COMPLICATIONS Status: Acute Current Visit: No (7) Hypertension SNOMED Code(s): 86019602 ICD Code: I10 - ESSENTIAL (PRIMARY) HYPERTENSION Status: Acute Current Visit: No (8) Thrombocytopenia SNOMED Code(s): 410389617 ICD Code: D69.6 - THROMBOCYTOPENIA, UNSPECIFIED Status: Acute Current Visit: No Problem List Initiated/Reviewed/Updated: Yes Orders Last 24hrs: Active Orders 24 hr Category Date Time Status Patient Status [ADT] Routine ADT 04/17/20 18:18 Active EKG 12 Lead [EKG Documentation Completion] [RC] STAT Care 04/17/20 17:29 Active COVID-19/FLU A+B [MOLEC] Stat Lab 04/17/20 18:44 Received Magnesium Sulfate/Water [Magnesium Sulfate in Water 2 Med 04/17/20 18:09 Active GM/50 ML] 2 gm in 50 ml IV ONETIME Potassium Chloride Riders [KCL in Water 40 MEQ/100 ML] Med 04/17/20 17:52 Active 40 meq Premix Bag 1 bag IV ONETIME Sodium Chloride 0.9% [Normal Saline] 1,000 ml Med 04/17/20 19:00 Active IV ASDIRECTED Medication Orders Potassium Chloride 40 meq/ (Premix) 100 mls @ 25 mls/hr IV ONETIME ONE Stop: 04/17/20 21:51 Last Admin: 04/17/20 18:48 Dose: 25 mls/hr Documented by: [id number] Magnesium Sulfate (Magnesium Sulfate In Water 2 Gm/50 Ml) 2 gm in 50 mls @ 50 mls/hr IV ONETIME ONE Stop: 04/17/20 19:08 Last Admin: 04/17/20 18:48 Dose: 50 mls/hr Documented by: [id number] Sodium Chloride (Normal Saline) 1,000 mls @ 175 mls/hr IV ASDIRECTED JANIE Last Admin: 04/17/20 18:48 Dose: 175 mls/hr Documented by: [id number] Assessment/Plan Comment:: Assessment and Plan: 1. Hypokalemia: - Patient on telemetry. Patient given PO KCl 40 mEq and started on IV 40 mEq in the ER. Will recheck with AM labs. - EKG showed NSR and prolonged QTc. - Will hold insulin and lasix as to not further drop potassium level. 2. Hypomagnesemia: - Patient given IV mag sulfate 2 gm in ER. Will recheck with AM labs. 3. LIVE: - Will order 1 L IV LR 100 cc/hr. 4. Chronic thrombocytopenia likely secondary to NAFLD: - Will monitor with AM labs. 5. Atrial fibrillation, rate controlled: - Patient on telemetry. Anticoagulated with Eliquis. 6. DM type 2: - ADA diet and accuchecks TIDAC. Will hold insulin for now secondary to #1. 7. Past medical history of HTN, NAFLD and fibromyalgia: - Continue home medications. 8. DVT prophylaxis: - SCD's for now.
[2020-04-17] MEDS ORDERED: Sodium Chloride 0.9% 1,000 ML IV SCH (19:00)
[2020-04-17] MEDS ORDERED: Lactated Ringers 1,000 ML IV SCH (19:15)
[2020-04-17 19:30] LABS: CORONAVIRUS COVID-19 NAA NEGATIVE (NEGATIVE); INFLUENZA A NAA NEGATIVE (NEGATIVE); INFLUENZA B NAA NEGATIVE (NEGATIVE)
[2020-04-17] MEDS: Apixaban 2.5 MG Tab PO SCH (20:45)
[2020-04-17] MEDS: oxyCODONE 5 MG Tab PO PRN (20:45)
[2020-04-18] MEDS: Acetaminophen 325 MG Tab PO PRN ×2 (00:32→11:02)
[2020-04-18] MEDS: oxyCODONE 5 MG Tab PO PRN ×2 (05:28→11:39)
[2020-04-18 05:46] LABS: CARBON DIOXIDE,CO2 29.4 mmol/L (21.0-32.0); POTASSIUM,K 3.4 mmol/L (3.5-5.1)
[2020-04-18] MEDS: Apixaban 2.5 MG Tab PO SCH (08:34)
[2020-04-18 08:41] VITALS: BP 116/55; PULSE 95
[2020-04-18] MEDS ORDERED: Non-Formulary Medication 1 Each (Amlodipine 10 MG) PO SCH (09:00)
[2020-04-18] MEDS ORDERED: amLODIPine 5 MG Tab PO SCH (09:00)
[2020-04-18] MEDS ORDERED: DILTIAZEM 240 MG PO SCH (09:00)
[2020-04-18] MEDS ORDERED: Potassium Chloride 20 MEQ Tab.ER PO ONE (09:00)
[2020-04-18] MEDS ORDERED: Diltiazem 120 MG Cap.CD PO SCH (09:00)
[2020-04-18] MEDS ORDERED: Magnesium Sulfate/Water 2 GM/50 ML BAG IV ONE (10:16)
--- NOTE | 2020-04-18 11:06 | PCM.DCSUM1 ---
Discharge Summary - Hospital Course Free Text/Narrative:: 59-year-old female admitted for hypokalemia. She has a PMH of HTN, a-fib, DM type 2, NAFLD, chronic thrombocytopenia and fibromyalgia. Patient was at an appointment with her industrial engineering intern in [place] on day of admission for follow-up for her NAFLD. She labs drawn and then was on her way driving back to [place] when she was called and notified of a critically low potassium level and told to go to the ER. On admission, EKG showed NSR with prolonged QTc. Platelets 74, potassium 2.5, magnesium 1.5 and creatinine 1.3. CXR was unremarkable. Patient was was noted to have LIVE and started on IV fluids. Patient's potassium and magnesium were repleted. No reported events on telemetry overnight. The following morning her potassium level and magnesium level improved. She was discharged with script for PO potassium chloride 20 mEq daily. Advised to follow-up with PCP and have potassium level rechecked within 1 week. - Discharge Data Discharge Date: 04/18/20 Discharge Disposition: Home, Self-Care 01 Condition: Stable - Referral to Home Health Primary Care Physician: Milagros Dean MD - Discharge Diagnosis/Problem(s) (1) Hypokalemia SNOMED Code(s): 60419940 ICD Code: E87.6 - HYPOKALEMIA Status: Acute Current Visit: Yes (2) NAFLD (nonalcoholic fatty liver disease) SNOMED Code(s): 643082591 ICD Code: K76.0 - FATTY (CHANGE OF) LIVER, NOT ELSEWHERE CLASSIFIED Status: Acute Current Visit: Yes (3) Hypomagnesemia SNOMED Code(s): 361104495 ICD Code: E83.42 - HYPOMAGNESEMIA Status: Acute Current Visit: Yes (4) LIVE (acute kidney injury) SNOMED Code(s): 52363546, 76826956 ICD Code: N17.9 - ACUTE KIDNEY FAILURE, UNSPECIFIED Status: Acute Current Visit: Yes (5) Afib SNOMED Code(s): 51080610 ICD Code: I48.91 - UNSPECIFIED ATRIAL FIBRILLATION Status: Acute Current Visit: Yes (6) Diabetes SNOMED Code(s): 66885269 ICD Code: E11.9 - TYPE 2 DIABETES MELLITUS WITHOUT COMPLICATIONS Status: Acute Current Visit: No (7) Hypertension SNOMED Code(s): 69110758 ICD Code: I10 - ESSENTIAL (PRIMARY) HYPERTENSION Status: Acute Current Visit: No (8) Thrombocytopenia SNOMED Code(s): 107285824 ICD Code: D69.6 - THROMBOCYTOPENIA, UNSPECIFIED Status: Acute Current Visit: No - Patient Instructions Diet: Diabetic Diet Activity: As Tolerated Notify Provider of: Fever, Increased Pain, Swelling and Redness, Drainage, Nausea and/or Vomiting - Discharge Plan *PRESCRIPTION DRUG MONITORING PROGRAM REVIEWED*: Not Applicable *COPY OF PRESCRIPTION DRUG MONITORING REPORT IN PATIENT RADHA: Not Applicable Prescriptions/Med Rec: Potassium Chloride 20 meq PO DAILY 30 Days #30 tab.[email or web address] Home Medications: Home Meds Furosemide 40 mg PO QAM 05/14/15 [History] Insulin Aspart [NovoLOG] 16 units SUBCUT TIDAC 05/14/15 [History] amLODIPine [Norvasc] 10 mg PO DAILY 05/14/15 [History] lisinopriL [Prinivil] 40 mg PO DAILY 05/14/15 [History] Apixaban [Eliquis] 5 mg PO BID 11/05/19 [History] Diltiazem [Dilacor XR] 240 mg PO DAILY 11/05/19 [History] Dicyclomine [Bentyl] 10 mg PO Q6H 04/17/20 [History] Fluocinonide [Lidex 0.05% Top Soln] 1 applic TOP BID PRN 04/17/20 [History] Temazepam 15 mg PO BEDTIME PRN 04/17/20 [History] carisoprodoL [Carisoprodol] 350 mg PO TID PRN 04/17/20 [History] oxyCODONE 5 mg PO Q4HR PRN 04/17/20 [History] Potassium Chloride 20 meq PO DAILY 30 Days #30 tab.er.prt 04/18/20 [Rx] Oxygen Therapy Mode: Room Air Patient Handouts: Hypokalemia, Potassium Chloride Extended-Release Wax Matrix Oral Tablets, Fatty Liver Disease, Nonalcoholic Fatty Liver Disease Diet, Adult Referrals: Milagros Dean MD [Primary Care Provider] - (Please make an appointment with Dr. Dean on Monday, April.) - Discharge Summary/Plan Comment DC Time >30 min.: No - Patient Data Vitals - Most Recent: Last Vital Signs Temp 36.4 C 04/18/20 08:40 Pulse 95 04/18/20 09:42 Resp 16 04/18/20 08:40 BP 116/55 L 04/18/20 09:43 Pulse Ox 95 04/18/20 08:40 Weight - Most Recent: 96.615 kg I&O - Last 24 hours: Intake & Output 04/17/20 04/18/20 04/18/20 22:59 06:59 14:59 Intake Total 520 50 Output Total 980 Balance -460 50 Lab Results - Last 24 hrs: Laboratory Results - last 24 hr 04/17/20 04/17/20 04/17/20 Range/Units 16:53 16:53 16:53 WBC 2.27 L (4.0-11.0) K/uL RBC 3.73 L (4.30-5.90) M/uL Hgb 11.0 L (12.0-16.0) g/dL Hct 33.0 L (36.0-46.0) % MCV 88.5 (80.0-98.0) fL MCH 29.5 (27.0-32.0) pg MCHC 33.3 (31.0-37.0) g/dL RDW Std Deviation 52.8 (28.0-62.0) fl RDW Coeff of Saranya 16 H (11.0-15.0) % Plt Count 74 L (150-400) K/uL MPV 11.00 (7.40-12.00) fL Neut % (Auto) 73.2 (48.0-80.0) % Lymph % (Auto) 16.3 (16.0-40.0) % [place] % (Auto) 7.0 (0.0-15.0) % Eos % (Auto) 3.5 (0.0-7.0) % Baso % (Auto) 0.0 (0.0-1.5) % Neut # (Auto) 1.7 (1.4-5.7) K/uL Lymph # (Auto) 0.4 L (0.6-2.4) K/uL [place] # (Auto) 0.2 (0.0-0.8) K/uL Eos # (Auto) 0.1 (0.0-0.7) K/uL Baso # (Auto) 0.0 (0.0-0.1) K/uL Nucleated RBC % 0.0 /100WBC Nucleated RBCs # 0 K/uL INR 1.40 APTT 33.6 H (18.6-31.3) SEC Sodium 137 (136-145) mmol/L Potassium 2.5 L (3.5-5.1) mmol/L Chloride 98 (98-107) mmol/L Carbon Dioxide 28.2 (21.0-32.0) mmol/L BUN 11 (7.0-18.0) mg/dL Creatinine 1.3 H (0.6-1.0) mg/dL Est Cr Clr Drug Dosing 47.58 mL/min Estimated GFR (MDRD) 42.1 ml/min Glucose 171 H (74-106) mg/dL POC Glucose (60-110) mg/dL Calcium 8.8 (8.5-10.1) mg/dL Phosphorus (2.6-4.7) mg/dL Magnesium (1.8-2.4) mg/dL Total Bilirubin 0.9 (0.2-1.0) mg/dL AST 19 (15-37) IU/L ALT 13 L (14-63) IU/L Alkaline Phosphatase 122 H (46-116) U/L Total Protein 6.9 (6.4-8.2) g/dL Albumin 3.3 L (3.4-5.0) g/dL Globulin 3.6 (2.6-4.0) g/dL Albumin/Globulin Ratio 0.9 (0.9-1.6) Influenza Type A RNA (NEGATIVE) Influenza Type B RNA (NEGATIVE) SARS-CoV-2 RNA (ROGELIO) (NEGATIVE) 04/17/20 04/17/20 04/18/20 Range/Units 16:53 18:44 00:15 WBC (4.0-11.0) K/uL RBC (4.30-5.90) M/uL Hgb (12.0-16.0) g/dL Hct (36.0-46.0) % MCV (80.0-98.0) fL MCH (27.0-32.0) pg MCHC (31.0-37.0) g/dL RDW Std Deviation (28.0-62.0) fl RDW Coeff of Saranya (11.0-15.0) % Plt Count (150-400) K/uL MPV (7.40-12.00) fL Neut % (Auto) (48.0-80.0) % Lymph % (Auto) (16.0-40.0) % [place] % (Auto) (0.0-15.0) % Eos % (Auto) (0.0-7.0) % Baso % (Auto) (0.0-1.5) % Neut # (Auto) (1.4-5.7) K/uL Lymph # (Auto) (0.6-2.4) K/uL [place] # (Auto) (0.0-0.8) K/uL Eos # (Auto) (0.0-0.7) K/uL Baso # (Auto) (0.0-0.1) K/uL Nucleated RBC % /100WBC Nucleated RBCs # K/uL INR APTT (18.6-31.3) SEC Sodium (136-145) mmol/L Potassium 3.3 L (3.5-5.1) mmol/L Chloride (98-107) mmol/L Carbon Dioxide (21.0-32.0) mmol/L BUN (7.0-18.0) mg/dL Creatinine (0.6-1.0) mg/dL Est Cr Clr Drug Dosing mL/min Estimated GFR (MDRD) ml/min Glucose (74-106) mg/dL POC Glucose (60-110) mg/dL Calcium (8.5-10.1) mg/dL Phosphorus 3.1 (2.6-4.7) mg/dL Magnesium 1.5 L (1.8-2.4) mg/dL Total Bilirubin (0.2-1.0) mg/dL AST (15-37) IU/L ALT (14-63) IU/L Alkaline Phosphatase (46-116) U/L Total Protein (6.4-8.2) g/dL Albumin (3.4-5.0) g/dL Globulin (2.6-4.0) g/dL Albumin/Globulin Ratio (0.9-1.6) Influenza Type A RNA NEGATIVE (NEGATIVE) Influenza Type B RNA NEGATIVE (NEGATIVE) SARS-CoV-2 RNA (ROGELIO) NEGATIVE (NEGATIVE) 04/18/20 04/18/20 04/18/20 Range/Units 05:23 05:23 05:23 WBC 2.45 L (4.0-11.0) K/uL RBC 3.89 L (4.30-5.90) M/uL Hgb 11.5 L (12.0-16.0) g/dL Hct 34.7 L (36.0-46.0) % MCV 89.2 (80.0-98.0) fL MCH 29.6 (27.0-32.0) pg MCHC 33.1 (31.0-37.0) g/dL RDW Std Deviation 54.2 (28.0-62.0) fl RDW Coeff of Saranya 17 H (11.0-15.0) % Plt Count 81 L (150-400) K/uL MPV 10.70 (7.40-12.00) fL Neut % (Auto) 69.0 (48.0-80.0) % Lymph % (Auto) 19.6 (16.0-40.0) % [place] % (Auto) 6.9 (0.0-15.0) % Eos % (Auto) 4.1 (0.0-7.0) % Baso % (Auto) 0.4 (0.0-1.5) % Neut # (Auto) 1.7 (1.4-5.7) K/uL Lymph # (Auto) 0.5 L (0.6-2.4) K/uL [place] # (Auto) 0.2 (0.0-0.8) K/uL Eos # (Auto) 0.1 (0.0-0.7) K/uL Baso # (Auto) 0.0 (0.0-0.1) K/uL Nucleated RBC % 0.0 /100WBC Nucleated RBCs # 0 K/uL INR APTT (18.6-31.3) SEC Sodium 141 (136-145) mmol/L Potassium 3.4 L (3.5-5.1) mmol/L Chloride 104 (98-107) mmol/L Carbon Dioxide 29.4 (21.0-32.0) mmol/L BUN 8 (7.0-18.0) mg/dL Creatinine 1.1 H (0.6-1.0) mg/dL Est Cr Clr Drug Dosing 56.24 mL/min Estimated GFR (MDRD) 51.0 ml/min Glucose 144 H (74-106) mg/dL POC Glucose (60-110) mg/dL Calcium 8.5 (8.5-10.1) mg/dL Phosphorus (2.6-4.7) mg/dL Magnesium 1.8 (1.8-2.4) mg/dL Total Bilirubin 0.9 (0.2-1.0) mg/dL AST 20 (15-37) IU/L ALT 13 L (14-63) IU/L Alkaline Phosphatase 120 H (46-116) U/L Total Protein 6.8 (6.4-8.2) g/dL Albumin 3.2 L (3.4-5.0) g/dL Globulin 3.6 (2.6-4.0) g/dL Albumin/Globulin Ratio 0.9 (0.9-1.6) Influenza Type A RNA (NEGATIVE) Influenza Type B RNA (NEGATIVE) SARS-CoV-2 RNA (ROGELIO) (NEGATIVE) 04/18/20 Range/Units 06:42 WBC (4.0-11.0) K/uL RBC (4.30-5.90) M/uL Hgb (12.0-16.0) g/dL Hct (36.0-46.0) % MCV (80.0-98.0) fL MCH (27.0-32.0) pg MCHC (31.0-37.0) g/dL RDW Std Deviation (28.0-62.0) fl RDW Coeff of Saranya (11.0-15.0) % Plt Count (150-400) K/uL MPV (7.40-12.00) fL Neut % (Auto) (48.0-80.0) % Lymph % (Auto) (16.0-40.0) % [place] % (Auto) (0.0-15.0) % Eos % (Auto) (0.0-7.0) % Baso % (Auto) (0.0-1.5) % Neut # (Auto) (1.4-5.7) K/uL Lymph # (Auto) (0.6-2.4) K/uL [place] # (Auto) (0.0-0.8) K/uL Eos # (Auto) (0.0-0.7) K/uL Baso # (Auto) (0.0-0.1) K/uL Nucleated RBC % /100WBC Nucleated RBCs # K/uL INR APTT (18.6-31.3) SEC Sodium (136-145) mmol/L Potassium (3.5-5.1) mmol/L Chloride (98-107) mmol/L Carbon Dioxide (21.0-32.0) mmol/L BUN (7.0-18.0) mg/dL Creatinine (0.6-1.0) mg/dL Est Cr Clr Drug Dosing mL/min Estimated GFR (MDRD) ml/min Glucose (74-106) mg/dL POC Glucose 149 H (60-110) mg/dL Calcium (8.5-10.1) mg/dL Phosphorus (2.6-4.7) mg/dL Magnesium (1.8-2.4) mg/dL Total Bilirubin (0.2-1.0) mg/dL AST (15-37) IU/L ALT (14-63) IU/L Alkaline Phosphatase (46-116) U/L Total Protein (6.4-8.2) g/dL Albumin (3.4-5.0) g/dL Globulin (2.6-4.0) g/dL Albumin/Globulin Ratio (0.9-1.6) Influenza Type A RNA (NEGATIVE) Influenza Type B RNA (NEGATIVE) SARS-CoV-2 RNA (ROGELIO) (NEGATIVE) Med Orders - Current: Current Medications Acetaminophen (Tylenol) 650 mg PO Q6H PRN PRN Reason: Headache/Pain Last Admin: 04/18/20 11:02 Dose: 650 mg Documented by: Amlodipine Besylate (Norvasc) 10 mg PO DAILY [facility] Last Admin: 04/18/20 09:43 Dose: Not Given Documented by: Apixaban (Eliquis) 5 mg PO BID [facility] Last Admin: 04/18/20 08:34 Dose: 5 mg Documented by: Diltiazem HCl (Cardizem Cd) 240 mg PO DAILY [facility] Last Admin: 04/18/20 09:42 Dose: 240 mg Documented by: Magnesium Sulfate (Magnesium Sulfate In Water 2 Gm/50 Ml) 2 gm in 50 mls @ 50 mls/hr IV ONETIME ONE Stop: 04/18/20 11:15 Last Admin: 04/18/20 10:42 Dose: 50 mls/hr Documented by: Oxycodone HCl (Oxycodone) 5 mg PO Q6H PRN PRN Reason: Pain (moderate 4-6) Last Admin: 04/18/20 05:28 Dose: 5 mg Documented by: Discontinued Medications Potassium Chloride 40 meq/ (Premix) 100 mls @ 25 mls/hr IV ONETIME ONE Stop: 04/17/20 21:51 Last Admin: 04/17/20 18:48 Dose: 25 mls/hr Documented by: Magnesium Sulfate (Magnesium Sulfate In Water 2 Gm/50 Ml) 2 gm in 50 mls @ 50 mls/hr IV ONETIME ONE Stop: 04/17/20 19:08 Last Admin: 04/17/20 18:48 Dose: 50 mls/hr Documented by: Sodium Chloride (Normal Saline) 1,000 mls @ 175 mls/hr IV ASDIRECTED [facility] Last Admin: 04/17/20 18:48 Dose: 175 mls/hr Documented by: Lactated Ringer's (Ringers, Lactated) 1,000 mls @ 100 mls/hr IV ASDIRECTED [facility] Stop: 04/18/20 05:14 Last Admin: 04/18/20 00:20 Dose: 100 mls/hr Documented by: Magnesium Sulfate (Magnesium Sulfate 50%) 2 gm IV NOW [facility] Stop: 04/17/20 18:04 Non-Formulary Medication (Amlodipine) 10 mg PO DAILY [facility] Non-Formulary Medication (Diltiazem [Dilacor Xr]) 240 mg PO DAILY [facility] Potassium Chloride (Potassium Chloride) 40 meq PO ONETIME ONE Stop: 04/17/20 18:31 Last Admin: 04/17/20 18:48 Dose: 40 meq Documented by: Potassium Chloride (Klor-Con M20) 40 meq PO ONETIME ONE Stop: 04/18/20 09:01 Last Admin: 04/18/20 08:34 Dose: 40 meq Documented by: - Exam General: Reports: Alert, Oriented, Cooperative, No Acute Distress Lungs: Reports: Clear to Auscultation, Normal Respiratory Effort Cardiovascular: Reports: Regular Rate, Regular Rhythm GI/Abdominal Exam: Normal Bowel Sounds, Soft, Non-Tender, No Distention Extremities: Normal Inspection, No Pedal Edema
== END 2020-04-18 12:35 | disposition home or self-care (01) ==
LOC: MW.ED 16:05 → MW.ICU 18:18
PROVIDERS: ADMIT Internal Medicine; ATTEND Internal Medicine
DX: E87.6 Hypokalemia (principal); K76.0 Fatty (change of) liver, not elsewhere classified; I11.0 Hypertensive heart disease with heart failure; I50.9 Heart failure, unspecified; I48.91 Unspecified atrial fibrillation; E83.42 Hypomagnesemia; N17.9 Acute kidney failure, unspecified; D69.6 Thrombocytopenia, unspecified; E11.9 Type 2 diabetes mellitus without complications; Z20.822 Contact with and (suspected) exposure to COVID-19; Z79.4 Long term (current) use of insulin; Z79.899 Other long term (current) drug therapy; Z88.0 Allergy status to penicillin; Z88.5 Allergy status to narcotic agent; Z91.040 Latex allergy status; Z88.8 Allergy status to other drugs, medicaments and biological substances; Z98.890 Other specified postprocedural states
CPT/HCPCS: 0240U; 36415; 71045; 80053; 82962; 83735; 84100; 84132; 85025; 85610; 85730; 93005; A9270; J3475; J3480; J7030; J7120